=== PATIENT | female | born 1970 | race African-American/Black ===

== ENCOUNTER 2016-04-15 17:33 | Emergency (ER) | payer OTHER ==
[~2016-04-15] VITALS: Ht 172.7 cm; Wt 106.6 kg
[~2016-04-15 17:33] MED LIST: ALBUTEROL SULF8.5 GM INH; ALPRAZOLAM0.25 MG ORAL; AZITHROMYCIN250 MG ORAL; CEPHALEXIN500 MG ORAL; CLOTRIMAZOLE AF30 GM TOPIC; CORTISPORIN EAR10 ML OTIC; DEBROX15 M1 OT; DIPHENHYDRAMINE25 M1 ORAL; FLUCONAZOLE100 MG ORAL; IBUPROFEN600 MG ORAL; IBUPROFEN600 MG PO; KENALOG 0.025%15 GM APPLIC; METROGEL-VAGINA70 G1 VAGIN; NKM; NORCO 5-325 TA1 EACH PO; TRIAMTERENE-HC1 EAC7 PO; ZOFRAN ODT4 MG ORAL
[2016-04-15 17:49] VITALS: BP 128/79
[2016-04-15] MEDS ORDERED: AMOXICILLIN500 MG ORAL (18:01)
[2016-04-15] MEDS ORDERED: PROMETHAZINE-D118 ML ORAL (18:01)
[2016-04-15] MEDS ORDERED: DIFLUCAN150 MG PO (18:06)
[2016-04-15 18:11] VITALS: BP 128/79
--- NOTE | 2016-04-15 18:13 | Emergency Room Report ---
History of Present Illness General Chief Complaint: General Complaint Source: Patient Present Illness HPI The patient is a 45-year-old female presenting with one week of cough, subjective fevers, and congestion. The patient denies any medical history denies any recent travel or sick contacts. The patient denies knee pain and also denies chills, night sweats, hemoptysis, rash, DORADO, neck pain/stiffness, abd pain, CP, SOB Allergies: Coded Allergies: No Known Allergies (Unverified , 05/01/12) Patient History Past Medical History: see triage record Pertinent Family History: none Last Menstrual Period: apr 01, 2016 Now: No Reviewed Nursing Documentation: PMH: Agreed, PSxH: Agreed Nursing Documentation-PMH Past Medical History: No Stated History Hx Hypertension: Yes Review of Systems All Other Systems: negative except mentioned in HPI Physical Exam Vital Signs Date Time Temp Pulse Resp B/P Pulse Ox O2 Delivery O2 Flow Rate FiO2 04/15/16 17:40 97.7 83 16 128/79 100 Room Air Sp02 EP Interpretation: reviewed, normal General Appearance: no apparent distress, alert, GCS 15, non-toxic Head: normocephalic, atraumatic Eyes: bilateral eye PERRL, bilateral eye normal inspection ENT: hearing grossly normal, no angioedema, normal voice, nasal congestion, pharyngeal erythema, tonsillar exudate Neck: full range of motion, supple/symm/no masses Respiratory: chest non-tender, lungs clear, normal breath sounds, no respiratory distress, no accessory muscle use, no wheezing, speaking full sentences Cardiovascular #1: regular rate, rhythm, no edema Gastrointestinal: normal bowel sounds, non tender, soft, non-distended, no guarding, no rebound Musculoskeletal: back normal, gait/station normal, normal range of motion, non- tender Neurologic: alert, oriented x3, responsive, motor strength/tone normal, sensory intact, speech normal Psychiatric: judgement/insight normal, memory normal, mood/affect normal, no suicidal/homicidal ideation Skin: normal color, no rash, warm/dry, well hydrated Lymphatic: no adenopathy Medical Decision Making PA Attestation Dr. Suazo is my supervising physician. Patient management was discussed with my supervising physician Diagnostic Impression: Primary Impression: Pharyngitis, acute ER Course The patient is a 45-year-old female presenting with one week of cough, subjective fevers, and congestion. Differential diagnosis include but not limited to pharyngitis, sinusitis, AOM, bronchitis, PNA PE: vitals WNL. afebrile. NAD HEENT: Bilateral tonsillar erythema. There is right sided tonsillar exudate. Uvula midline. Lungs CTA bilat. No cervical lymphadenopathy The pt will be NC'ed home with prescription for amoxicillin and cough medication. ER precautions given. The pt states she often gets vaginal candidiasis after taking abx and is asking for prescription for diflucan. Last Vital Signs Date Time Temp Pulse Resp B/P Pulse Ox O2 Delivery O2 Flow Rate FiO2 04/15/16 17:49 97.7 16 128/79 100 Room Air 04/15/16 17:40 83 Status: improved Disposition: HOME, SELF-CARE Condition: Improved Scripts Fluconazole (DIFLUCAN) 150 Mg Tablet 150 MG PO DAILY, #1 TAB Prov: STELLA MCCULLOUGH.A. 04/15/16 D-Methorphan Hb/Prometh Hcl* (PROMETHAZINE-DM SYRUP*) 118 Ml Syrup 5 ML ORAL Q6H Y for For Cough, #118 ML 0 Refills Prov: STELLA MCCULLOUGH.A. 04/15/16 Amoxicillin* (AMOXIL*) 500 Mg Capsule 500 MG ORAL Q12HR, #20 CAP Prov: STELLA MCCULLOUGH P.A. 04/15/16 Patient Instructions: Pharyngitis, [id number] Additional Instructions: I discussed my findings with the patient. All questions and concerns have been answered. Treatment and medication compliance have been addressed. I advised the patient that they need to follow up with PMD in 3-5 days. Return to ED if pain remains or worsens, cough worsens or remains, you notice blood in your sputum, you notice wheezing, you experience a fever, or if needed for any reason. Patient verbalized understanding of discharge instructions. STELLA MCCULLOUGH Apr 15, 2016 18:13
== END 2016-04-15 18:12 | disposition home or self-care (01) ==
LOC: EMR 17:55
DX: J02.9 Acute pharyngitis, unspecified (principal); I10 Essential (primary) hypertension
CPT/HCPCS: 99284

== ENCOUNTER 2016-04-19 17:06 | Inpatient (IN) | payer OTHER ==
[~2016-04-19] VITALS: Ht 172.7 cm; Wt 105.7 kg
[~2016-04-19 17:06] MED LIST changes: +AMOXICILLIN500 MG ORAL; +DIFLUCAN150 MG PO; +PROMETHAZINE-D118 ML ORAL
[2016-04-19 17:30] VITALS: BP 128/79
--- NOTE | 2016-04-19 17:53 | Emergency Room Report ---
History of Present Illness General Chief Complaint: Dyspnea/Respdistress Source: Patient Present Illness HPI Patient presents with complaints of shortness of breath sensation she reports that for the past 5 days she has had a similar sensation but she feels that she has to take a deep breath no to get a full air Denies any fevers or chills Denies any back or flank pain denies any chest pain patient was previously diagnosed with pharyngitis however states that she does not have any sore throat symptoms Denies any abdominal pain Denies any recent travel denies any calf pain or swelling denies any pleurisy Allergies: Coded Allergies: No Known Allergies (Unverified , 05/01/12) Patient History Past Medical History: see triage record Pertinent Family History: none Last Menstrual Period: 03/19/16 Now: No Reviewed Nursing Documentation: PMH: Agreed, PSxH: Agreed Nursing Documentation-PMH Past Medical History: No Stated History Hx Hypertension: Yes Review of Systems All Other Systems: negative except mentioned in HPI Physical Exam Vital Signs Date Time Temp Pulse Resp B/P Pulse Ox O2 Delivery O2 Flow Rate FiO2 04/19/16 17:11 98.2 89 20 128/79 04/19/16 17:30 100 Room Air Sp02 EP Interpretation: reviewed, normal General Appearance: well appearing, no apparent distress Head: normocephalic, atraumatic Eyes: bilateral eye EOMI, bilateral eye PERRL ENT: hearing grossly normal, normal pharynx, TMs + canals normal, uvula midline Neck: full range of motion, supple, no meningismus, no bony tend Respiratory: lungs clear, normal breath sounds, no rhonchi, no respiratory distress, no retraction, no accessory muscle use Cardiovascular #1: normal peripheral pulses, regular rate, rhythm, no edema, no gallop, no JVD, no murmur Gastrointestinal: normal bowel sounds, non tender, soft, no mass, no organomegaly, non-distended, no guarding, no hernia, no pulsatile mass, no rebound Genitourinary: no CVA tenderness Musculoskeletal: normal inspection Neurologic: oriented x3, responsive, waste picker III-XII nml as tested, motor strength/ tone normal, sensory intact Psychiatric: mood/affect normal Skin: normal color, no rash, warm/dry, palpation normal Lymphatic: normal inspection, no adenopathy Medical Decision Making Diagnostic Impression: Primary Impression: Symptomatic anemia Additional Impression: Dyspnea ER Course Patient is a fairly complex patient with multiple differential to consideration including but not limited to cardiac cardiopulmonary and vascular emergencies Patient's blood work reveals a hemoglobin of 6.4 Patient does not recall being told she was anemic previously she has never had a blood transfusion before This does provide some input regarding the patient's dyspnea Patient is sent for blood transfusion and admitted for further care The source of anemia also needs to be investigated further patient does have heavier menstrual cycles at times but is currently not hemorrhaging Labs Test 04/19/16 17:15 04/19/16 17:40 04/20/16 07:15 04/20/16 09:55 Urine Color Pale yellow Urine Appearance Clear Urine pH 5 (4.5-8.0) Urine Specific [place] 1.015 (1.005-1.035) Urine Protein Negative (NEGATIVE) Urine Glucose (UA) Negative (NEGATIVE) Urine Ketones Negative (NEGATIVE) Urine Occult Blood Negative (NEGATIVE) Urine Nitrite Negative (NEGATIVE) Urine Bilirubin Negative (NEGATIVE) Urine Urobilinogen Normal MG/DL (0.0-1.0) Urine Leukocyte Esterase Negative (NEGATIVE) Urine HCG, Qualitative Negative Urine Opiates Screen Negative (NEGATIVE) Urine Barbiturates Screen Negative (NEGATIVE) Phencyclidine (PCP) Screen Negative (NEGATIVE) Urine Amphetamines Screen Negative (NEGATIVE) Urine Benzodiazepines Screen Positive (NEGATIVE) Urine Cocaine Screen Negative (NEGATIVE) Urine Marijuana (THC) Screen Negative (NEGATIVE) White Blood Count 4.8 K/UL (4.8-10.8) 3.5 K/UL (4.8-10.8) Red Blood Count 4.33 M/UL (4.20-5.40) 4.32 M/UL (4.20-5.40) Hemoglobin 6.4 G/DL (12.0-16.0) 7.3 G/DL (12.0-16.0) Hematocrit 22.8 % (37.0-47.0) 24.5 % (37.0-47.0) Mean Corpuscular Volume 53 FL (80-99) 57 FL (80-99) Mean Corpuscular Hemoglobin 14.8 PG (27.0-31.0) 16.9 PG (27.0-31.0) Mean Corpuscular Hemoglobin Concent 28.1 G/DL (32.0-36.0) 29.8 G/DL (32.0-36.0) Red Cell Distribution Width 16.4 % (11.6-14.8) 24.5 % (11.6-14.8) Platelet Count 323 K/UL (150-450) 278 K/UL (150-450) Mean Platelet Volume 7.9 FL (6.5-10.1) 7.9 FL (6.5-10.1) Neutrophils (%) (Auto) % (45.0-75.0) % (45.0-75.0) Lymphocytes (%) (Auto) % (20.0-45.0) % (20.0-45.0) Monocytes (%) (Auto) % (1.0-10.0) % (1.0-10.0) Eosinophils (%) (Auto) % (0.0-3.0) % (0.0-3.0) Basophils (%) (Auto) % (0.0-2.0) % (0.0-2.0) Differential Total Cells Counted 100 100 Neutrophils % (Manual) 62 % (45-75) 66 % (45-75) Lymphocytes % (Manual) 32 % (20-45) 24 % (20-45) Monocytes % (Manual) 4 % (1-10) 8 % (1-10) Eosinophils % (Manual) 1 % (0-3) 2 % (0-3) Basophils % (Manual) 1 % (0-2) 0 % (0-2) Band Neutrophils 0 % (0-8) 0 % (0-8) Platelet Estimate Adequate Adequate Platelet Morphology Normal Normal Hypochromasia 3+ 3+ Anisocytosis 3+ 3+ Microcytosis 2+ 2+ Target Cells 1+ Ovalocytes 1+ D-Dimer 981 ng/mL (<500) Sodium Level 139 mEQ/L (135-145) 141 mEQ/L (135-145) Potassium Level 4.1 mEQ/L (3.4-4.9) 4.2 mEQ/L (3.4-4.9) Chloride Level 102 mEQ/L (98-107) 105 mEQ/L (98-107) Carbon Dioxide Level 19 mEQ/L (20-30) 22 mEQ/L (20-30) Anion Gap 18 (5-15) 14 (5-15) Blood Urea Nitrogen 14 mg/dL (7-23) 9 mg/dL (7-23) Creatinine 1.0 mg/dL (0.5-0.9) 0.8 mg/dL (0.5-0.9) Estimat Glomerular Filtration Rate > 60 mL/min (>60) > 60 mL/min (>60) Glucose Level 82 mg/dL (74-106) 88 mg/dL (74-106) Calcium Level 8.9 mg/dL (8.6-10.2) 8.5 mg/dL (8.6-10.2) Total Bilirubin 0.2 mg/dL (0.0-1.2) 0.5 mg/dL (0.0-1.2) Aspartate Amino Transf (AST/SGOT) 20 U/L (5-40) 16 U/L (5-40) Alanine Aminotransferase (ALT/SGPT) 9 U/L (3-33) 7 U/L (3-33) Alkaline Phosphatase 66 U/L (35-104) 61 U/L (35-104) Total Creatine Kinase 124 U/L (26-140) Creatine Kinase MB < 1.5 ng/mL (< 3.8) Creatine Kinase MB Relative Index Troponin I < 0.30 ng/mL (<=0.30) Pro-B-Type Natriuretic Peptide 17 pg/mL (0-125) Total Protein 7.9 g/dL (6.6-8.7) 6.7 g/dL (6.6-8.7) Albumin 4.0 g/dL (3.5-5.2) 3.5 g/dL (3.5-5.2) Globulin 3.9 g/dL 3.2 g/dL Albumin/Globulin Ratio 1.0 (1.0-2.7) 1.0 (1.0-2.7) Erythrocyte Sedimentation Rate 40 MM/HR (0-20) Reticulocyte Count 0.7 % (0.0-2.0) Prothrombin Time 11.1 SEC (9.30-11.50) Prothromb Time International Ratio 1.1 (0.9-1.1) Activated Partial Thromboplast Time 22 SEC (23-33) Iron Level 81 ug/dL (37-145) Total Iron Binding Capacity 397 ug/dL (250-400) Percent Iron Saturation 20 % (15-50) Unsaturated Iron Binding 316 ug/dL (112-346) Lactate Dehydrogenase 133 U/L (135-230) Carcinoembryonic Antigen 1.7 ng/mL Vitamin B12 Level 967 pg/mL (211-946) Thyroid Stimulating Hormone (TSH) 3.000 uIU/mL (0.300-4.500) Stool Occult Blood Negative (NEGATIVE) Rhythm Strip Diag. Results EP Interpretation: yes Rate: 78 Rhythm: NSR, no PVC's, no ectopy Chest X-Ray Diagnostic Results EP Interpretation: Yes Findings: no consolidation, no effusion, no pneumothorax, other - borderline cardiomegaly Number of Views: 1 Last Vital Signs Date Time Temp Pulse Resp B/P Pulse Ox O2 Delivery O2 Flow Rate FiO2 04/19/16 17:30 98.2 89 20 128/79 100 Room Air Status: improved Disposition: ADMITTED INPATIENT Condition: Serious NADJA GIVENS D.O. Apr 19, 2016 17:53
[2016-04-19 18:05] LABS: APPEARANCE,URINE CLEAR; KETONES,URINE NEGATIVE (NEGATIVE); LEUKOCYTE ESTERASE ,URINE NEGATIVE (NEGATIVE); NITRITE,URINE NEGATIVE (NEGATIVE); PH,URINE 5 (4.5-8.0); PROTEIN,URINE NEGATIVE (NEGATIVE); UROBILINOGEN,URINE NORMAL MG/DL (0.0-1.0)
[2016-04-19 18:22] LABS: MEAN CORPUSCULAR HEMOGLOBIN 14.8 PG (27.0-31.0); MEAN CORPUSCULAR HGB CONC 28.1 G/DL (32.0-36.0); MEAN CORPUSCULAR VOLUME 53 FL (80-99); MEAN PLATELET VOLUME 7.9 FL (6.5-10.1); PLATELET COUNT 323 K/UL (150-450); RED BLOOD COUNT 4.33 M/UL (4.20-5.40); RED CELL DISTRIBUTION WIDTH 16.4 % (11.6-14.8); WHITE BLOOD COUNT 4.8 K/UL (4.8-10.8)
[2016-04-19 18:30] VITALS: BP 122/80
[2016-04-19 18:32] LABS: TROPONIN I < 0.30 ng/mL (<=0.30)
[2016-04-19 18:35] LABS: ALANINE AMINOTRANSFERASE 9 U/L (3-33); ANION GAP 18 (5-15); ASPARTATE AMINO TRANSFERASE 20 U/L (5-40); CALCIUM 8.9 mg/dL (8.6-10.2); CARBON DIOXIDE 19 mEQ/L (20-30); CHLORIDE 102 mEQ/L (98-107); GLOMERULAR FILTRATION RATE > 60 mL/min (>60); HEMOLYSIS 9; POTASSIUM 4.1 mEQ/L (3.4-4.9); SODIUM 139 mEQ/L (135-145); TOTAL PROTEIN 7.9 g/dL (6.6-8.7)
[2016-04-19 18:46] LABS: CKMB < 1.5 ng/mL (< 3.8)
[2016-04-19 19:30] VITALS: BP 131/79
[2016-04-19 20:30] VITALS: BP 129/88
[2016-04-19 20:37] LABS: BASOPHILS % (MANUAL) 1 % (0-2); EOSINOPHILS % (MANUAL) 1 % (0-3); LYMPHOCYTES % (MANUAL) 32 % (20-45); NEUTROPHILS % (MANUAL) 62 % (45-75); TOTAL CELLS COUNTED 100
[2016-04-19 20:38] LABS: ANISOCYTOSIS 3+; HYPOCHROMASIA 3+
[2016-04-19 20:39] LABS: BAND NEUTROPHILS % (MANUAL) 0 % (0-8); MICROCYTES 2+; OVALOCYTES 1+; PLATELET ESTIMATE ADEQUATE; PLATELET MORPHOLOGY NORMAL; TARGET CELLS 1+
[2016-04-19] MEDS ORDERED: Miralax 17gm pkt ORAL PRN (21:45)
[2016-04-19] MEDS ORDERED: Morphine Sulfate 2mg/ml Inj IVP PRN (21:45)
[2016-04-19] MEDS ORDERED: LORazepam Inj 2mg/ml 1ml IV PRN (21:45)
[2016-04-19] MEDS ORDERED: Mylanta II UD 30ml ORAL PRN (21:45)
[2016-04-19] MEDS ORDERED: Zolpidem 5mg tab ORAL PRN (21:45)
[2016-04-19 21:53] VITALS: BP 144/69
[2016-04-19 22:04] VITALS: BP 150/93
[2016-04-19] MEDS: ALPRAZolam 0.5mg tab ORAL PRN (23:30)
[2016-04-20] VITALS: BP 142/78
[2016-04-20 04:00] VITALS: BP 138/88
[2016-04-20 07:34] LABS: MEAN CORPUSCULAR HEMOGLOBIN 16.9 PG (27.0-31.0); MEAN CORPUSCULAR HGB CONC 29.8 G/DL (32.0-36.0); MEAN CORPUSCULAR VOLUME 57 FL (80-99); MEAN PLATELET VOLUME 7.9 FL (6.5-10.1); PLATELET COUNT 278 K/UL (150-450); RED BLOOD COUNT 4.32 M/UL (4.20-5.40); RED CELL DISTRIBUTION WIDTH 24.5 % (11.6-14.8); WHITE BLOOD COUNT 3.5 K/UL (4.8-10.8)
[2016-04-20 07:40] LABS: INR 1.1 (0.9-1.1); PROTHROMBIN TIME 11.1 SEC (9.30-11.50)
[2016-04-20 07:49] LABS: ALANINE AMINOTRANSFERASE 7 U/L (3-33); ANION GAP 14 (5-15); ASPARTATE AMINO TRANSFERASE 16 U/L (5-40); CALCIUM 8.5 mg/dL (8.6-10.2); CARBON DIOXIDE 22 mEQ/L (20-30); CHLORIDE 105 mEQ/L (98-107); CREATININE 0.8 mg/dL (0.5-0.9); GLOMERULAR FILTRATION RATE > 60 mL/min (>60); LACTATE DEHYDROGENASE 133 U/L (135-230); POTASSIUM 4.2 mEQ/L (3.4-4.9); SODIUM 141 mEQ/L (135-145); TOTAL PROTEIN 6.7 g/dL (6.6-8.7)
[2016-04-20 08:11] VITALS: BP 120/69
[2016-04-20 08:33] LABS: HEMOLYSIS 2; IRON 81 ug/dL (37-145); TOTAL IRON BINDING CAPACITY 397 ug/dL (250-400)
[2016-04-20 09:05] LABS: ERYTHROCYTE SEDIMENTATION RATE 40 MM/HR (0-20)
--- NOTE | 2016-04-20 11:15 | Diagnostic Imaging Report ---
Indication: SOB Technique: One view of the chest Comparison: 12/02/2013 Findings: Lungs and pleural spaces are clear. Heart size is upper limits normal. Findings are unchanged Impression: No acute process
[2016-04-20 12:01] VITALS: BP 145/76
[2016-04-20 12:18] LABS: BAND NEUTROPHILS % (MANUAL) 0 % (0-8); BASOPHILS % (MANUAL) 0 % (0-2); EOSINOPHILS % (MANUAL) 2 % (0-3); LYMPHOCYTES % (MANUAL) 24 % (20-45); NEUTROPHILS % (MANUAL) 66 % (45-75); PLATELET ESTIMATE ADEQUATE; TOTAL CELLS COUNTED 100
[2016-04-20 12:19] LABS: ANISOCYTOSIS 3+; PLATELET MORPHOLOGY NORMAL
[2016-04-20 12:20] LABS: HYPOCHROMASIA 3+
[2016-04-20 12:21] LABS: MICROCYTES 2+
[2016-04-20 12:48] LABS: PATH BLOOD SMEAR/OMC SENT TO PATHOLOGIST
[2016-04-20 13:01] LABS: RETICULOCYTE COUNT 0.7 % (0.0-2.0)
[2016-04-20 16:00] VITALS: BP 118/77
--- NOTE | 2016-04-20 16:09 | History and Physical ---
History of Present Illness General Date patient seen: Apr 20, 2016 Reason for Hospitalization: Dyspnea/Respdistress Present Illness HPI 45 year old female presents with complaints of shortness of breath for the past 5 days. She was found to be severely anemic and admitted for further evaluation. Allergies: Coded Allergies: No Known Allergies (Unverified , 05/01/12) Medication History Scheduled Amoxicillin* (Amoxil*), 500 MG ORAL Q12HR Fluconazole (Diflucan), 150 MG PO DAILY No Known Medications* (NKM - No Known Medications*), 0 ., (Reported) Scheduled PRN D-Methorphan Hb/Prometh Hcl* (Promethazine-Dm Syrup*), 5 ML ORAL Q6H PRN for For Cough Discontinued Medications Albuterol Sulfate* (Albuterol Sulfate Mdi*), 2 PUFF INH Q4H PRN for For Cough Discontinued Reason: Therapy completed Alprazolam* (Xanax*), 0.25 MG ORAL TID PRN for For Anxiety Discontinued Reason: Therapy completed Azithromycin* (Zithromax*), 250 MG ORAL DAILY Discontinued Reason: Therapy completed Carbamide Peroxide (Debrox), 15 ML OT TID PRN for ear wax Discontinued Reason: Therapy completed Cephalexin* (Keflex*), 500 MG ORAL EVERY 12 HOURS Discontinued Reason: Therapy completed Diphenhydramine Hcl* (Diphenhydramine Hcl*), 25 MG ORAL Q6H PRN for Itching Discontinued Reason: Therapy completed Fluconazole (Fluconazole), 100 MG ORAL DAILY Discontinued Reason: Therapy completed Ibuprofen* (Motrin*), 600 MG ORAL Q8H PRN for For Pain Discontinued Reason: Therapy completed Neomycin/Polymyxin B Sulf/Hc* (Cortisporin Ear Solution*), 2 DROP OTIC FOUR TIMES A DAY Discontinued Reason: Therapy completed Ondansetron Odt* (Zofran Odt*), 4 MG ORAL Q6H PRN for Nausea & Vomiting Discontinued Reason: Therapy completed Triamcinolone Acet (Triamcinolone Acetonide), 15 GM APPLIC BID Discontinued Reason: Therapy completed Patient History Healthcare decision maker pt alert and oriented Resuscitation status Advanced Directive on File Review of Systems All Other Systems: negative except mentioned in HPI Physical Exam General Appearance: WD/WN Lines, tubes and drains: peripheral HEENT: normocephalic, atraumatic Neck: non-tender, normal alignment Respiratory/Chest: lungs clear, normal breath sounds Abdomen: normal bowel sounds, non tender Genitourinary/Rectal: normal genital exam Last 24 Hour Vital Signs Date Time Temp Pulse Resp B/P Pulse Ox O2 Delivery O2 Flow Rate FiO2 04/20/16 12:01 97.2 76 20 145/76 100 Room Air 04/20/16 08:11 97.9 76 21 120/69 99 Room Air 04/20/16 04:00 97.0 88 18 138/88 100 Room Air 04/20/16 00:00 98.1 85 18 142/78 98 Room Air 04/19/16 22:04 98.4 83 20 150/93 100 Room Air 04/19/16 21:53 87 20 144/69 100 Room Air 04/19/16 21:50 98.0 87 18 04/19/16 21:18 98.2 79 18 129/88 100 Room Air 04/19/16 20:30 79 18 129/88 100 Room Air 04/19/16 19:30 84 20 131/79 100 Room Air 04/19/16 18:30 81 18 122/80 99 Room Air 04/19/16 17:30 98.2 89 20 128/79 100 Room Air 04/19/16 17:30 89 20 04/19/16 17:11 98.2 89 20 128/79 Intake and Output 04/19/16 04/20/16 19:00 07:00 Intake Total 120 ml Balance 120 ml Intake Oral 120 ml # Voids 1 Laboratory Tests Test 04/19/16 17:15 04/19/16 17:40 04/20/16 07:15 04/20/16 09:55 Urine Color Pale yellow Urine Appearance Clear Urine pH 5 (4.5-8.0) Urine Specific [place] 1.015 (1.005-1.035) Urine Protein Negative (NEGATIVE) Urine Glucose (UA) Negative (NEGATIVE) Urine Ketones Negative (NEGATIVE) Urine Occult Blood Negative (NEGATIVE) Urine Nitrite Negative (NEGATIVE) Urine Bilirubin Negative (NEGATIVE) Urine Urobilinogen Normal MG/DL (0.0-1.0) Urine Leukocyte Esterase Negative (NEGATIVE) Urine HCG, Qualitative Negative Urine Opiates Screen Negative (NEGATIVE) Urine Barbiturates Screen Negative (NEGATIVE) Phencyclidine (PCP) Screen Negative (NEGATIVE) Urine Amphetamines Screen Negative (NEGATIVE) Urine Benzodiazepines Screen Positive (NEGATIVE) H Urine Cocaine Screen Negative (NEGATIVE) Urine Marijuana (THC) Screen Negative (NEGATIVE) White Blood Count 4.8 K/UL (4.8-10.8) 3.5 K/UL (4.8-10.8) L Red Blood Count 4.33 M/UL (4.20-5.40) 4.32 M/UL (4.20-5.40) Hemoglobin 6.4 G/DL (12.0-16.0) *L 7.3 G/DL (12.0-16.0) L Hematocrit 22.8 % (37.0-47.0) L 24.5 % (37.0-47.0) L Mean Corpuscular Volume 53 FL (80-99) L 57 FL (80-99) L Mean Corpuscular Hemoglobin 14.8 PG (27.0-31.0) L 16.9 PG (27.0-31.0) L Mean Corpuscular Hemoglobin Concent 28.1 G/DL (32.0-36.0) L 29.8 G/DL (32.0-36.0) L Red Cell Distribution Width 16.4 % (11.6-14.8) H 24.5 % (11.6-14.8) H Platelet Count 323 K/UL (150-450) 278 K/UL (150-450) Mean Platelet Volume 7.9 FL (6.5-10.1) 7.9 FL (6.5-10.1) Neutrophils (%) (Auto) % (45.0-75.0) % (45.0-75.0) Lymphocytes (%) (Auto) % (20.0-45.0) % (20.0-45.0) Monocytes (%) (Auto) % (1.0-10.0) % (1.0-10.0) Eosinophils (%) (Auto) % (0.0-3.0) % (0.0-3.0) Basophils (%) (Auto) % (0.0-2.0) % (0.0-2.0) Differential Total Cells Counted 100 100 Neutrophils % (Manual) 62 % (45-75) 66 % (45-75) Lymphocytes % (Manual) 32 % (20-45) 24 % (20-45) Monocytes % (Manual) 4 % (1-10) 8 % (1-10) Eosinophils % (Manual) 1 % (0-3) 2 % (0-3) Basophils % (Manual) 1 % (0-2) 0 % (0-2) Band Neutrophils 0 % (0-8) 0 % (0-8) Platelet Estimate Adequate Adequate Platelet Morphology Normal Normal Hypochromasia 3+ 3+ Anisocytosis 3+ 3+ Microcytosis 2+ 2+ Target Cells 1+ Ovalocytes 1+ D-Dimer 981 ng/mL (<500) H Sodium Level 139 mEQ/L (135-145) 141 mEQ/L (135-145) Potassium Level 4.1 mEQ/L (3.4-4.9) 4.2 mEQ/L (3.4-4.9) Chloride Level 102 mEQ/L (98-107) 105 mEQ/L (98-107) Carbon Dioxide Level 19 mEQ/L (20-30) L 22 mEQ/L (20-30) Anion Gap 18 (5-15) H 14 (5-15) Blood Urea Nitrogen 14 mg/dL (7-23) 9 mg/dL (7-23) Creatinine 1.0 mg/dL (0.5-0.9) H 0.8 mg/dL (0.5-0.9) Estimat Glomerular Filtration Rate > 60 mL/min (>60) > 60 mL/min (>60) Glucose Level 82 mg/dL (74-106) 88 mg/dL (74-106) Calcium Level 8.9 mg/dL (8.6-10.2) 8.5 mg/dL (8.6-10.2) L Total Bilirubin 0.2 mg/dL (0.0-1.2) 0.5 mg/dL (0.0-1.2) Aspartate Amino Transf (AST/SGOT) 20 U/L (5-40) 16 U/L (5-40) Alanine Aminotransferase (ALT/SGPT) 9 U/L (3-33) 7 U/L (3-33) Alkaline Phosphatase 66 U/L (35-104) 61 U/L (35-104) Total Creatine Kinase 124 U/L (26-140) Creatine Kinase MB < 1.5 ng/mL (< 3.8) Creatine Kinase MB Relative Index Troponin I < 0.30 ng/mL (<=0.30) Pro-B-Type Natriuretic Peptide 17 pg/mL (0-125) Total Protein 7.9 g/dL (6.6-8.7) 6.7 g/dL (6.6-8.7) Albumin 4.0 g/dL (3.5-5.2) 3.5 g/dL (3.5-5.2) Globulin 3.9 g/dL 3.2 g/dL Albumin/Globulin Ratio 1.0 (1.0-2.7) 1.0 (1.0-2.7) Erythrocyte Sedimentation Rate 40 MM/HR (0-20) H Reticulocyte Count 0.7 % (0.0-2.0) Prothrombin Time 11.1 SEC (9.30-11.50) Prothromb Time International Ratio 1.1 (0.9-1.1) Activated Partial Thromboplast Time 22 SEC (23-33) L Iron Level 81 ug/dL (37-145) Total Iron Binding Capacity 397 ug/dL (250-400) Percent Iron Saturation 20 % (15-50) Unsaturated Iron Binding 316 ug/dL (112-346) Lactate Dehydrogenase 133 U/L (135-230) L Carcinoembryonic Antigen 1.7 ng/mL Vitamin B12 Level 967 pg/mL (211-946) H Folate Pending Thyroid Stimulating Hormone (TSH) 3.000 uIU/mL (0.300-4.500) Stool Occult Blood Negative (NEGATIVE) Height (Feet): 5 Height (Inches): 8.00 Weight (Pounds): 233 Medications Current Medications Medications (Trade) Dose Ordered Sig/Sahra Route PRN Reason Start Time Stop Time Status Last Admin Dose Admin Acetaminophen (Tylenol) 650 mg Q4H PRN ORAL fever 04/19/16 21:45 05/19/16 21:44 Al Hydroxide/Mg Hydroxide (Mylanta II) 30 ml Q6H PRN ORAL dyspepsia 04/19/16 21:45 05/19/16 21:44 Alprazolam (Xanax) 1 mg EVERY 4 HOURS PRN ORAL For Anxiety 04/19/16 23:00 04/26/16 22:59 04/19/16 23:30 Dextrose (Dextrose 50%) STAT PRN IV Hypoglycemia 04/19/16 21:45 05/19/16 21:44 Lorazepam (Ativan 2mg/ml 1ml) 0.5 mg Q4H PRN IV For Anxiety 04/19/16 21:45 04/26/16 21:44 Morphine Sulfate (Morphine Sulfate) 1 mg EVERY 4 HOURS PRN IVP For Pain 04/19/16 21:45 04/26/16 21:44 Ondansetron HCl (Zofran) 4 mg Q6H PRN IVP Nausea & Vomiting 04/19/16 21:45 05/19/16 21:44 Polyethylene Glycol (Miralax) 17 gm HSPRN PRN ORAL Constipation 04/19/16 21:45 05/19/16 21:44 Zolpidem Tartrate (Ambien) 5 mg HSPRN PRN ORAL Insomnia 04/19/16 21:45 05/19/16 21:44 Assessment/Plan Problem List: (1) Symptomatic anemia ICD Codes: D64.9 - Anemia, unspecified SNOMED: 165863187 (2) Anxiety ICD Codes: F41.9 - Anxiety disorder, unspecified; F48.9 - Nonpsychotic mental disorder, unspecified SNOMED: 75654834 Assessment/Plan prbc iron studies check h/h ELENO ELIZALDE Apr 20, 2016 16:09
--- NOTE | 2016-04-20 16:24 | Diagnostic Imaging Report ---
Indication: Pelvic pain, history of uterine fibroids Technique: Transabdominal and transvaginal images Comparison: None Findings: Uterus measures 9.6 cm length by 6.3 cm AP. Within the myometrium are multiple fibroids, some calcified, measuring up to 3.2 cm long axis dimension. There are small cervical nabothian cysts. The left ovary measures 3.2 cm length. Right ovary measures 3.5 cm length. No adnexal mass is demonstrated. There is a small to moderate amount of free fluid within the pelvic cul-de-sac. Impression: Multiple uterine fibroids, some calcified Negative for adnexal mass Small to moderate free pelvic cul-de-sac fluid. Presumably physiologic
[2016-04-20] MEDS: ALPRAZolam 0.5mg tab ORAL PRN (19:42)
[2016-04-20 20:00] VITALS: BP 121/74
[2016-04-21] VITALS: BP 111/66
[2016-04-21] MEDS: ALPRAZolam 0.5mg tab ORAL PRN (01:32)
[2016-04-21 04:00] VITALS: BP 115/76
[2016-04-21 08:00] VITALS: BP 121/65
[2016-04-21 10:23] LABS: BASOPHILS % (AUTO) 1.3 % (0.0-2.0); EOSINOPHILS % (AUTO) 1.5 % (0.0-3.0); LYMPHOCYTES % (AUTO) 20.8 % (20.0-45.0); MEAN CORPUSCULAR HEMOGLOBIN 17.8 PG (27.0-31.0); MEAN CORPUSCULAR HGB CONC 29.7 G/DL (32.0-36.0); MEAN CORPUSCULAR VOLUME 60 FL (80-99); MEAN PLATELET VOLUME 7.6 FL (6.5-10.1); MONOCYTES % (AUTO) 10.7 % (1.0-10.0); NEUTROPHILS % (AUTO) 65.8 % (45.0-75.0); PLATELET COUNT 280 K/UL (150-450); RED BLOOD COUNT 5.02 M/UL (4.20-5.40); RED CELL DISTRIBUTION WIDTH 27.3 % (11.6-14.8); WHITE BLOOD COUNT 4.1 K/UL (4.8-10.8)
[2016-04-21] MEDS ORDERED: NS 275ml ONE (11:59)
[2016-04-21] MEDS ORDERED: Tubing Blood Filter IV ONE (11:59)
[2016-04-21 12:00] VITALS: BP 134/58
--- NOTE | 2016-04-21 14:48 | Pulmonology Progress Note ---
Assessment/Plan Problems: (1) Symptomatic anemia (2) Anxiety Assessment/Plan better got 3 untis of prbc need outpatient anemia w/u. pt aware Subjective ROS Limited/Unobtainable: No Interval Events: feeling better Allergies: Coded Allergies: No Known Allergies (Unverified , 05/01/12) Objective Last 24 Hour Vital Signs Date Time Temp Pulse Resp B/P Pulse Ox O2 Delivery O2 Flow Rate FiO2 04/21/16 12:00 97.7 72 20 134/58 100 Room Air 04/21/16 08:00 98.6 85 20 121/65 100 Room Air 04/21/16 04:00 98.1 70 20 115/76 99 Room Air 04/21/16 00:00 97.7 75 18 111/66 99 Room Air 04/20/16 20:00 98.2 79 18 121/74 99 Room Air 04/20/16 16:00 98.2 76 18 118/77 100 Room Air Intake and Output 04/20/16 04/21/16 19:00 07:00 Intake Total 440 ml 790 ml Balance 440 ml 790 ml Intake Oral 440 ml 540 ml Blood Product 250 ml # Voids 4 General Appearance: WD/WN HEENT: normocephalic, atraumatic Respiratory/Chest: chest wall non-tender, lungs clear Breasts: no masses Cardiovascular: normal peripheral pulses Abdomen: normal bowel sounds Extremities: no cyanosis Skin: no rash 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 Lymphatic: no neck adenopathy, no groin adenopathy Laboratory Tests 04/21/16 09:30: White Blood Count 4.1L, Red Blood Count 5.02, Hemoglobin 8.9L, Hematocrit 30.1L , Mean Corpuscular Volume 60L, Mean Corpuscular Hemoglobin 17.8L, Mean Corpuscular Hemoglobin Concent 29.7L, Red Cell Distribution Width 27.3H, Platelet Count 280, Mean Platelet Volume 7.6, Neutrophils (%) (Auto) 65.8, Lymphocytes (%) (Auto) 20.8, Monocytes (%) (Auto) 10.7H, Eosinophils (%) (Auto) 1.5, Basophils (%) (Auto) 1.3 Current Medications Medications (Trade) Dose Ordered Sig/Sahra Route PRN Reason Start Time Stop Time Status Last Admin Dose Admin Acetaminophen (Tylenol) 650 mg Q4H PRN ORAL fever 04/19/16 21:45 05/19/16 21:44 Al Hydroxide/Mg Hydroxide (Mylanta II) 30 ml Q6H PRN ORAL dyspepsia 04/19/16 21:45 05/19/16 21:44 Alprazolam (Xanax) 1 mg EVERY 4 HOURS PRN ORAL For Anxiety 04/19/16 23:00 04/26/16 22:59 04/21/16 01:32 Dextrose (Dextrose 50%) STAT PRN IV Hypoglycemia 04/19/16 21:45 05/19/16 21:44 Lorazepam (Ativan 2mg/ml 1ml) 0.5 mg Q4H PRN IV For Anxiety 04/19/16 21:45 04/26/16 21:44 Morphine Sulfate (Morphine Sulfate) 1 mg EVERY 4 HOURS PRN IVP For Pain 04/19/16 21:45 04/26/16 21:44 Ondansetron HCl (Zofran) 4 mg Q6H PRN IVP Nausea & Vomiting 04/19/16 21:45 05/19/16 21:44 Polyethylene Glycol (Miralax) 17 gm HSPRN PRN ORAL Constipation 04/19/16 21:45 05/19/16 21:44 Zolpidem Tartrate (Ambien) 5 mg HSPRN PRN ORAL Insomnia 04/19/16 21:45 05/19/16 21:44 ELENO ELIZALDE Apr 21, 2016 14:48
[2016-04-22 09:14] LABS: OTHERS PATHOLOGIST COMMENT
--- NOTE | 2016-04-22 12:14 | Diagnostic Imaging Report ---
APPROVED REPORT CPT Code: 25924 Present Symptoms Comments: Abnormal labs BILATERAL: Imaging reveals a patent deep venous system bilaterally. There is no evidence of thrombus within the femoral, popliteal or tibial segments. The greater saphenous veins are also within normal limits. Doppler indicates normal spontaneous flow within these segments.
--- NOTE | 2016-04-22 15:27 | Discharge Summary ---
Discharge Summary Hospital Course Date of Admission Apr 19, 2016 at 19:27 Date of Discharge Apr 21, 2016 at 12:00 Admitting Diagnosis symptomatic anemia HPI Oib Leonardo is a 45 year old female who was admitted on Apr 19, 2016 at 19: 27 for Symptomatic Anemia Hospital Course [id number] Discharge Discharge Disposition Patient was discharged to Home (01) Discharge Diagnoses: Allie Toro NP Apr 22, 2016 15:27
--- NOTE | 2016-04-22 15:28 | Cardiology Report ---
APPROVED REPORT EKG Measurement Heart [id number] Normal sinus rhythm Normal ECG
--- NOTE | 2016-04-23 01:28 | Discharge Summary 2 SIG ---
DATE OF ADMISSION: 04/19/2016 DATE OF DISCHARGE: 04/21/2016 BRIEF HOSPITAL COURSE: The patient is a 45-year-old female, who presented to ED complaining of shortness of breath for the past five days. On evaluation, she was found to be severely anemic. Hemoglobin was 6.4 and hematocrit of 22. She was admitted to medical floor and was given 3 units of packed RBC transfusion. Pelvic ultrasound showed multiple uterine fibroids. Negative for adnexal mass. Venous duplex was negative for DVT. Stool OB was negative. Blood counts were better. The patient was discharged home. Advised need of outpatient anemia workup. The patient was aware. FINAL DIAGNOSES: 1. Acute symptomatic anemia, status post blood transfusion. 2. Anxiety. 3. Multiple uterine fibroids. Erica Sanchez M.D. I have been assigned to dictate discharge summary on this account and I was not involved in the patient's management. Allie Toro N.P. DR: YESY JOB#: [id number] CC:
== END 2016-04-21 12:00 | disposition home or self-care (01) | DRG 663 ==
LOC: EMR 18:23 → 3E 19:27 → EDBEDREQ 20:21 → 3E 22:00
PROC: 30233N1 Transfusion of Nonautologous Red Blood Cells into Peripheral Vein, Percutaneous Approach (ICD-10-PCS; principal; 2016-04-19)
DX: D64.9 Anemia, unspecified (principal); D25.9 Leiomyoma of uterus, unspecified; F41.9 Anxiety disorder, unspecified
CPT/HCPCS: 36415; 71010; 76856; 80053; 80300; 81003; 81025; 82270; 82378; 82550; 82553; 82607; 82746; 83540; 83550; 83615; 83880; 84443; 84484; 85007; 85025; 85044; 85060; 85379; 85610; 85651; 85730; 86850; 86900; 86901; 86920; 93005; 93970

== ENCOUNTER 2016-05-15 17:19 | Emergency (ER) | payer OTHER ==
[~2016-05-15] VITALS: Ht 175.3 cm; Wt 106.6 kg
[2016-05-15] MEDS ORDERED: Ketorolac 30mg Inj IM ONE (17:45)
--- NOTE | 2016-05-15 17:51 | Emergency Room Report ---
History of Present Illness General Chief Complaint: Pain Source: Patient Present Illness HPI 45-year-old female complaining of left hip pain for 2 days. States pain is in the left hip radiating to the left knee and is now progressing to the left tibia region and left leg swelling. Pain is worse with movement of the left hip and knee. Complains of left leg weakness. Admits she was admitted for 3 days 1 month ago for anemia and received 3 transfusions. Denies any injury or recent trauma or strain admits to being sedentary. States she feels like she pulled a muscle and pain is 10/10 crampy sensation that is 4/10 when she is not bearing weight or sitting on her left side. Patient denies any pressure, paralysis, cyanosis, bruising, loss of sensation, or loss of range of motion. Allergies: Coded Allergies: No Known Allergies (Unverified , 05/01/12) Patient History Past Medical History: see triage record, old chart reviewed Last Menstrual Period: apr 17, 2016 Now: No Immunizations: UTD Reviewed Nursing Documentation: PMH: Agreed, PSxH: Agreed Nursing Documentation-PMH Past Medical History: No Stated History Hx Cardiac Problems: No Hx Hypertension: Yes Hx Cancer: No Hx Gastrointestinal Problems: No Hx Neurological Problems: No Review of Systems All Other Systems: negative except mentioned in HPI Physical Exam Vital Signs Date Time Temp Pulse Resp B/P Pulse Ox O2 Delivery O2 Flow Rate FiO2 05/15/16 17:24 98.4 84 15 143/87 98 Room Air Sp02 EP Interpretation: reviewed, normal General Appearance: no apparent distress, alert, GCS 15, non-toxic, obese Head: normocephalic, atraumatic ENT: hearing grossly normal, normal pharynx, no angioedema, normal voice Neck: full range of motion, supple/symm/no masses Respiratory: chest non-tender, lungs clear, normal breath sounds, speaking full sentences Cardiovascular #1: regular rate, rhythm, no edema Cardiovascular #2: 2+ dorsalis pedis (R), 2+ dorsalis pedis (L) Gastrointestinal: non tender, soft Rectal: deferred Genitourinary: normal inspection, no CVA tenderness Musculoskeletal: back normal, gait/station normal, normal range of motion, calf tenderness - Left calf and popliteal fossa, swelling - 1+ LE edema bilaterally, tender - left sided hip tenderness Neurologic: alert, oriented x3, responsive, motor strength/tone normal, sensory intact, speech normal Psychiatric: judgement/insight normal, memory normal, mood/affect normal, no suicidal/homicidal ideation Skin: normal color, no rash, warm/dry, well hydrated Lymphatic: no adenopathy Medical Decision Making PA Attestation Dr. Gauthier is my supervising physician with whom patient management has been discussed with. Diagnostic Impression: Primary Impression: Left hip pain ER Course Pt. presents to the ED c/o left hip pain Ddx considered but are not limited to fracture, sciatica, muscle strain / spasm , DVT, bakers cyst Vital signs: are WNL, pt. is afebrile H&PE are most consistent with left hip pain ORDERS: XR Pelvic and Left Hip. Left Venous Doppler, UA, Preg ED INTERVENTIONS: Toradol, Morphine DISCHARGE: At this time pt. is stable for d/c to home. could not r/o DVT as patient left AMA due to not wanting to wait for US to be performed and after she had received pain medication.Will provide printed patient care instructions , and any necessary prescriptions. Care plan and follow up instructions have been discussed with the patient prior to discharge. Other X-Ray Diagnostic Results Other X-Ray Diagnostic Results : X-Ray Ordered: Left Hip and Pelvis Date: May 15, 2016 EP Interpretation: Yes Findings: no fractures, no dislocation, no soft tissue swelling, other - Arthritic changes present. No acute process present Number of Views: 3 Last Vital Signs Date Time Temp Pulse Resp B/P Pulse Ox O2 Delivery O2 Flow Rate FiO2 05/15/16 20:07 98.5 81 15 138/81 98 Room Air Status: improved Disposition: AGAINST MEDICAL ADVICE Condition: Stable Scripts Naproxen* (NAPROSYN*) 500 Mg Tablet 500 MG ORAL TWICE A DAY for 10 Days, #20 TAB Prov: SABRY,TAMEEM P.A. 05/15/16 Acetaminophen With Codeine (T#4) (TYLENOL #4 TAB*) Y Tab 1 TAB ORAL Q8H Y for For Pain, #10 TAB 0 Refills Prov: SABRY,TAMEEM P.A. 05/15/16 Methocarbamol* (ROBAXIN-750*) 750 Mg Tablet 750 MG PO TID, #21 TAB 0 Refills Prov: SABRY,TAMEEM P.A. 05/15/16 Referrals: [facility] (PCP) ADOLPH GARDUNO May 15, 2016 17:51
[2016-05-15 18:17] LABS: APPEARANCE,URINE SLIGHTLY CLOUDY; KETONES,URINE NEGATIVE (NEGATIVE); LEUKOCYTE ESTERASE ,URINE NEGATIVE (NEGATIVE); NITRITE,URINE NEGATIVE (NEGATIVE); PH,URINE 5 (4.5-8.0); PROTEIN,URINE NEGATIVE (NEGATIVE); UROBILINOGEN,URINE NORMAL MG/DL (0.0-1.0)
[2016-05-15 18:26] LABS: BACTERIA,URINE FEW /HPF; RBC,URINE 0 /HPF (0 - 2); SQUAMOUS EPITHELIAL CELL,UR FEW /LPF (NONE/OCC)
[2016-05-15] MEDS ORDERED: Morphine Sulfate 4mg/ml Inj IM ONE (18:45)
[2016-05-15 19:21] VITALS: BP 138/81
[2016-05-15] MEDS ORDERED: ROBAXIN-750750 MG PO (19:55)
[2016-05-15] MEDS ORDERED: ACETAMINOPHEN-1 EAC2 ORAL (19:55)
[2016-05-15] MEDS ORDERED: NAPROSYN500 M1 ORAL (19:55)
[2016-05-15 20:07] VITALS: BP 138/81
--- NOTE | 2016-05-16 11:16 | Diagnostic Imaging Report ---
Indication: pain Findings: Single AP view of the pelvis was performed. No acute fracture is identified. Bone mineralization is within normal limits. Bilateral hips and sacroiliac joints appear symmetric.There is no malalignment. Soft tissues are unremarkable.
--- NOTE | 2016-05-16 11:16 | Diagnostic Imaging Report ---
Indications: hip pain Findings: Two views of the left hip were obtained. No acute fracture is demonstrated. Alignment of the hip is within normal limits. Soft tissues are unremarkable. Impression: Negative examination of the hip.
== END 2016-05-15 20:07 | disposition left against medical advice (07) ==
LOC: EMR 17:44
DX: M25.552 Pain in left hip (principal); I10 Essential (primary) hypertension; Z53.21 Procedure and treatment not carried out due to patient leaving prior to being seen by health care provider
CPT/HCPCS: 72170; 73502; 81003; 81025; 96372; 99284; J1885; J2270

== ENCOUNTER 2017-01-06 18:37 | Emergency (ER) | payer OTHER ==
[~2017-01-06] VITALS: Ht 172.7 cm; Wt 115.2 kg
[~2017-01-06 18:37] MED LIST changes: +ACETAMINOPHEN-1 EAC2 ORAL; +NAPROSYN500 M1 ORAL; +ROBAXIN-750750 MG PO
[2017-01-06 19:08] VITALS: BP 127/78
[2017-01-06 19:12] LABS: APPEARANCE,URINE CLEAR; BILIRUBIN, URINE NEGATIVE (NEGATIVE); COLOR,URINE PALE YELLOW; GLUCOSE, URINE (UA) NEGATIVE (NEGATIVE); KETONES,URINE 2+ (NEGATIVE); LEUKOCYTE ESTERASE ,URINE NEGATIVE (NEGATIVE); NITRITE,URINE NEGATIVE (NEGATIVE); PH,URINE 5 (4.5-8.0); PROTEIN,URINE NEGATIVE (NEGATIVE); UROBILINOGEN,URINE NORMAL MG/DL (0.0-1.0)
[2017-01-06] MEDS ORDERED: Fluconazole 100mg tab ORAL ONE (19:45)
[2017-01-06 19:50] VITALS: BP 127/78
--- NOTE | 2017-01-06 20:32 | Emergency Room Report ---
History of Present Illness General Chief Complaint: Female Urogenital Problems Source: Patient, Medical Record Present Illness HPI The patient is a 46 old female presenting for vaginal irritation, white discharge, and vaginal itching for the past day. She states that she has had a vaginal yeast infection in the past and this feels the same for her. She denies any dysuria, hematuria, or increased urinary frequency. She denies any other symptoms including nausea, vomiting, fever, chills, back pain Allergies: Coded Allergies: No Known Allergies (Unverified , 05/01/12) Patient History Past Medical History: see triage record Pertinent Family History: none Last Menstrual Period: menopause Reviewed Nursing Documentation: PMH: Agreed, PSxH: Agreed Nursing Documentation-PMH Hx Cardiac Problems: No Hx Hypertension: Yes Hx Cancer: No Hx Gastrointestinal Problems: No Hx Neurological Problems: No Review of Systems All Other Systems: negative except mentioned in HPI Physical Exam Vital Signs Date Time Temp Pulse Resp B/P (MAP) Pulse Ox O2 Delivery O2 Flow Rate FiO2 01/06/17 18:45 98.4 79 18 127/78 100 Room Air Sp02 EP Interpretation: reviewed, normal General Appearance: no apparent distress, alert, GCS 15, non-toxic Head: normocephalic, atraumatic Eyes: bilateral eye normal inspection, bilateral eye PERRL ENT: hearing grossly normal, normal pharynx, no angioedema, normal voice Neck: full range of motion, supple/symm/no masses Gastrointestinal: normal bowel sounds, non tender, soft, non-distended, no guarding, no rebound Genitourinary: normal inspection, no CVA tenderness Musculoskeletal: back normal, gait/station normal, normal range of motion, non- tender, calf tenderness Neurologic: alert, oriented x3, responsive, motor strength/tone normal, sensory intact, speech normal Psychiatric: judgement/insight normal, memory normal, mood/affect normal, no suicidal/homicidal ideation Skin: normal color, no rash, warm/dry, well hydrated Medical Decision Making PA Attestation Dr. Suazo is my supervising physician. Patient management was discussed with my supervising physician Diagnostic Impression: Primary Impression: Vaginal yeast infection ER Course The patient is a 46 old female presenting for vaginal irritation, white discharge, and vaginal itching for the past day. Differential diagnosis considered but not limited to: UTI, vaginitis, yeast infection, pyelonephritis, among others PE: Vitals WNL. NAD. Abdomen: Normal appearance. Non distended. No ecchymosis. Normal BS. Non TTP. No McBurney point tenderness. No guarding. No CVA tenderness UA: no signs of UTI The patient is treated for yeast infection in the emergency department and will be discharged home. ER precautions are given Laboratory Tests Test 01/06/17 18:47 Urine Color Pale yellow Urine Appearance Clear Urine pH 5 (4.5-8.0) Urine Specific [place] 1.015 (1.005-1.035) Urine Protein Negative (NEGATIVE) Urine Glucose (UA) Negative (NEGATIVE) Urine Ketones 2+ (NEGATIVE) H Urine Occult Blood 1+ (NEGATIVE) H Urine Nitrite Negative (NEGATIVE) Urine Bilirubin Negative (NEGATIVE) Urine Urobilinogen Normal MG/DL (0.0-1.0) Urine Leukocyte Esterase Negative (NEGATIVE) Urine RBC 0-2 /HPF (0 - 2) Urine WBC 0-2 /HPF (0 - 2) Urine Squamous Epithelial Cells Few /LPF (NONE/OCC) Urine Bacteria Occasional /HPF (NONE) Lab Results Impression No signs of UTI Last Vital Signs Date Time Temp Pulse Resp B/P (MAP) Pulse Ox O2 Delivery O2 Flow Rate FiO2 01/06/17 19:50 98.4 71 18 127/78 100 Room Air Status: improved Disposition: HOME, SELF-CARE Condition: Improved Referrals: [facility] (PCP) Patient Instructions: Vaginal Yeast Infection, Adult Additional Instructions: I discussed my findings with the patient. All questions and concerns have been answered. Treatment and medication compliance have been addressed. I advised the patient that they need to follow up with PMD in 3-5 days. Return to ED if symptoms worsen, new symptoms arise, or if needed for any reason. Patient verbalized understanding of discharge instructions. STELLA MCCULLOUGH Jan 06, 2017 20:32
== END 2017-01-06 19:50 | disposition home or self-care (01) ==
LOC: EMR 19:25
DX: B37.3 Candidiasis of vulva and vagina (principal); I10 Essential (primary) hypertension
CPT/HCPCS: 81003; 99283

== ENCOUNTER 2017-07-17 15:25 | Emergency (ER) | payer OTHER ==
[~2017-07-17] VITALS: Ht 172.7 cm; Wt 117.5 kg
[2017-07-17 15:36] VITALS: BP 127/82
--- NOTE | 2017-07-17 16:11 | Emergency Room Report ---
History of Present Illness General Chief Complaint: Female Urogenital Problems Present Illness HPI 46-year-old female presents to the emergency department complaining of white/ creamy vaginal discharge in addition to malodor 4 days. Denies pain. Patient reports history of BV in the past and this has similar presentation. Patient also states after receiving antibiotic she typically gets a yeast infection. Patient denies recent unprotected intercourse she denies swollen tender lymph nodes, joint pain, fevers, chills, abdominal pain or tenderness, hematuria, frequency or urgency. Patient reports some dysuria and speculates that it is due to contact of genital area. Denies CP, Palpitations, LOC, AMS, dizziness, Changes in Vision, Sensation, paresthesias, or a sudden severe headache. Allergies: Coded Allergies: No Known Allergies (Unverified , 05/01/12) Patient History Past Medical History: see triage record Past Surgical History: none Pertinent Family History: none Now: No Reviewed Nursing Documentation: PMH: Agreed; PSxH: Agreed Nursing Documentation-PMH Hx Cardiac Problems: No Hx Hypertension: Yes Hx Cancer: No Hx Gastrointestinal Problems: No Hx Neurological Problems: No Review of Systems All Other Systems: negative except mentioned in HPI Physical Exam Vital Signs Date Time Temp Pulse Resp B/P (MAP) Pulse Ox O2 Delivery O2 Flow Rate FiO2 5/20/18 15:29 82 20 127/82 97 Room Air Sp02 EP Interpretation: reviewed, normal General Appearance: no apparent distress, alert, GCS 15, non-toxic Head: normocephalic, atraumatic ENT: hearing grossly normal, normal voice Neck: full range of motion Respiratory: lungs clear, normal breath sounds, speaking full sentences Cardiovascular #1: regular rate, rhythm Gastrointestinal: normal bowel sounds, non tender, soft Genitourinary: normal inspection, no CVA tenderness, adnexa normal, other - Pelvic deferred by pt. Musculoskeletal: back normal, gait/station normal, normal range of motion, non- tender Neurologic: alert, oriented x3, responsive, motor strength/tone normal, sensory intact, normal gait, speech normal, grossly normal Psychiatric: judgement/insight normal Skin: normal color, no rash, warm/dry, well hydrated Lymphatic: no adenopathy Medical Decision Making PA Attestation Dr. Gauthier is my supervising Physician whom patient management has been discussed with. Diagnostic Impression: Primary Impression: Vaginitis Qualified Codes: N76.0 - Acute vaginitis ER Course 46-year-old female presents to the emergency department complaining of white/ creamy vaginal discharge in addition to malodor 4 days. Denies pain. Patient reports history of BV in the past and this has similar presentation. Patient also states after receiving antibiotic she typically gets a yeast infection. Patient denies recent unprotected intercourse she denies swollen tender lymph nodes, joint pain, fevers, chills, abdominal pain or tenderness, hematuria, frequency or urgency. Patient reports some dysuria and speculates that it is due to contact of genital area. Denies CP, Palpitations, LOC, AMS, dizziness, Changes in Vision, Sensation, paresthesias, or a sudden severe headache. Ddx considered but are not limited to UTi , Pyelo, STI, Stone, Cystitis, vaginal laceration, vaginitis. Vital signs: are WNL, pt. is afebrile H& PE are most consistent with: Vaginitis ORDERS: - UA : Pt. declines UA and wet mount stating she knows it;s BV. ED INTERVENTIONS: -None required at this time. DISCHARGE: At this time pt. is stable for d/c to home. Will provide printed patient care instructions, and any necessary prescriptions. Care plan and follow up instructions have been discussed with the patient prior to discharge. discussed with the patient prior to discharge. Last Vital Signs Date Time Temp Pulse Resp B/P (MAP) Pulse Ox O2 Delivery O2 Flow Rate FiO2 07/17/17 15:36 82 20 127/82 97 Room Air Disposition: HOME, SELF-CARE Condition: Stable Scripts Fluconazole (FLUCONAZOLE) 100 Mg Tablet 100 MG ORAL DAILY for 3 Days, #3 TAB 0 Refills Prov: Maribeth Cesar P.A. 07/17/17 Metronidazole* (FLAGYL*) 500 Mg Tablet 500 MG ORAL BID for 7 Days, #14 TAB Prov: Maribeth Cesar P.A. 07/17/17 Referrals: [facility] (PCP) Patient Instructions: Vaginitis Additional Instructions: Take medications as directed. Follow up with a Primary Care Provider in 3-5 days, even if your symptoms have resolved. --Please review list of primary care clinics, if you do not already have a primary care provider Return sooner to ED if new symptoms occur, or current symptoms become worse. - Please note that this Emergency Department Report was dictated using [employer] transcriptionist technology software, occasionally this can lead to erroneous entry secondary to interpretation by the dictation equipment. Maribeth Cesar July 17, 2017 16:11
[2017-07-17] MEDS ORDERED: FLUCONAZOLE100 MG ORAL (16:12)
[2017-07-17] MEDS ORDERED: METRONIDAZOLE500 MG ORAL (16:12)
[2017-07-17 16:24] VITALS: BP 127/82
== END 2017-07-17 16:25 | disposition home or self-care (01) ==
LOC: EMR 15:48
DX: N76.0 Acute vaginitis (principal); I10 Essential (primary) hypertension
CPT/HCPCS: 99284

== ENCOUNTER 2017-11-20 15:51 | Emergency (ER) | payer OTHER ==
[~2017-11-20] VITALS: Ht 172.7 cm; Wt 115.7 kg
[~2017-11-20 15:51] MED LIST changes: +METRONIDAZOLE500 MG ORAL
--- NOTE | 2017-11-20 16:09 | Emergency Room Report ---
History of Present Illness General Chief Complaint: Pain Source: Patient Present Illness HPI Patient with 2 days of left ankle pain. She states that she fractured that ankle in the past. She denies any other medical problems including hypertension and she's not taking water pills. She denies gout. Is no fever and no recent trauma. The pain is 7/10 and worse when she's walking. It doesn' t radiate to her calf. Allergies: Coded Allergies: No Known Allergies (Unverified , 05/01/12) Patient History Past Medical History: see triage record Social History: Denies: smoking Social History Narrative from home Last Menstrual Period: menopause Reviewed Nursing Documentation: PMH: Agreed; PSxH: Agreed Nursing Documentation-PMH Past Medical History: No History, Except For Hx Cardiac Problems: No - Anemia Hx Hypertension: No Hx Cancer: No Hx Gastrointestinal Problems: No History Of Psychiatric Problem: Yes - Anxiety Hx Neurological Problems: No Review of Systems Constitutional: Denies: fever Genitourinary: Reports: other - post menopausal Musculoskeletal: Reports: see HPI Skin: Reports: see HPI Neurological: Reports: see HPI Physical Exam Vital Signs Date Time Temp Pulse Resp B/P (MAP) Pulse Ox O2 Delivery O2 Flow Rate FiO2 11/20/17 15:58 98.6 86 16 122/77 97 Room Air 98.6 Sp02 EP Interpretation: reviewed, normal General Appearance: well appearing, no apparent distress Head: normocephalic, atraumatic ENT: hearing grossly normal, normal voice Neck: full range of motion, supple Respiratory: no respiratory distress, speaking full sentences Musculoskeletal: no calf tenderness, swelling, other - tenderness laterally and also anteriorly. Ligaments stable Neurologic: alert, normal gait Psychiatric: mood/affect normal Skin: no rash Medical Decision Making Diagnostic Impression: Primary Impression: Left ankle pain Additional Impression: Osteoarth NOS-ankle ER Course Patient presents with nontraumatic left ankle pain. She has a history of a prior fracture. Differential includes DJD, strain, sprain amongst others. X- rays indicated. Also Motrin will be given. X-ray shows degenerative changes. No fracture at this time. Minimal effusion. Uri is applied by the tech. Tension and position is excellent with improvement. Discussed findings with the patient and treatment plan. Patient is stable for outpatient observation and treatment. Other X-Ray Diagnostic Results Other X-Ray Diagnostic Results : X-Ray ordered: L ankle # of Views/Limited Vs Complete: 3 View Indication: Other EP Interpretation: Yes Interpretation: no dislocation, no soft tissue swelling, no fractures, other - DJD Impression: Other Electronically Signed by: Electronically signed by Marino Montes MD Status: improved Disposition: HOME, SELF-CARE Condition: Improved Marino Montes M.D. Nov 20, 2017 16:09
[2017-11-20 16:17] VITALS: BP 122/77
[2017-11-20] MEDS ORDERED: TYLENOL325 MG ORAL (16:48)
[2017-11-20] MEDS ORDERED: IBUPROFEN600 MG ORAL (16:48)
[2017-11-20 17:28] VITALS: BP 122/77
--- NOTE | 2017-11-21 13:32 | Diagnostic Imaging Report ---
Indication: Pain Technique: XRAY Ankle Compl Min 3v L Comparison: 06/01/2015 Findings: There is no evidence of acute fracture. Ankle mortise is intact on these nonstressed views. An unchanged amount fracture deformity of the distal tibia is again noted. No radiopaque foreign body identified. There is a small plantar calcaneal enthesophyte. Impression: * Chronic fracture deformity of the distal tibia, similar to the prior exam. No definite evidence of acute fracture. * Small plantar calcaneal enthesophyte.
== END 2017-11-20 16:52 | disposition home or self-care (01) ==
LOC: EMR 16:23
DX: M19.072 Primary osteoarthritis, left ankle and foot (principal); F41.9 Anxiety disorder, unspecified
CPT/HCPCS: 99283

== ENCOUNTER 2018-10-04 20:53 | Emergency (ER) | payer OTHER ==
[~2018-10-04] VITALS: Ht 172.7 cm; Wt 122.5 kg
[~2018-10-04 20:53] MED LIST changes: +KETOTIFEN FUMARA5 ML OP; +OCUFLOX5 ML OP; +TYLENOL325 MG ORAL; +[UNRECOGNIZED DRUG - OTHER] TP
--- NOTE | 2018-10-04 21:03 | NUR ---
ED Nurse Note: pt ambulated to ed c/o right ankle pain x1 week no obvious deformity, pt denies trauma to area. states that she had a injury 3 years ago to her right ankle. Addendum: 10/04/18 at 2107 by PDELEON ED Nurse Note: pt ambulated to ed c/o LEFT ankle pain x1 week no obvious deformity, pt denies trauma to area. states that she had a injury 3 years ago to her LEFT ankle.
[2018-10-04 21:06] VITALS: BP 149/85
--- NOTE | 2018-10-04 21:12 | NUR ---
ED Nurse Note: ACID ETCH OPERATOR AT BEDSIDE
--- NOTE | 2018-10-04 21:19 | NUR ---
ED Nurse Note: XRAY COMPLETED
[2018-10-04] MEDS ORDERED: IBUPROFEN600 MG ORAL (21:48)
[2018-10-04 21:54] VITALS: BP 144/83
--- NOTE | 2018-10-04 21:55 | NUR ---
ER DISCHARGE NOTE: Patient is cleared to be discharged per ERMD, pt is aox4, on room air, with stable vital signs. pt was given dc and prescription instructions, pt was able to verbalize understanding, pt id band removed. pt is able to ambulate with steady gait. pt took all belongings.
--- NOTE | 2018-10-05 11:13 | Diagnostic Imaging Report ---
Indication: left ankle pain Comparison: None Findings: 3 views of the left ankle obtained. Soft tissues are unremarkable. No acute fracture, malalignment, periostitis, or osteochondral defects are identified. There is a plantar calcaneal spur. Impression: No acute findings
--- NOTE | 2018-10-13 17:25 | Emergency Room Report ---
History of Present Illness General Chief Complaint: Pain Source: Patient, Medical Record Present Illness HPI Patient is a 48-year-old female who presented after increased left ankle pain. Patient reports having prior history of ankle fracture. She denies any recent injury. She reports having persistent pain with ambulation. She denies any increase in swelling. She reports having increased discomfort with weightbearing. Pain is sharp in nature. She denies any fever or other current locations of pain. Patient has been having pain for several days. Allergies: Coded Allergies: No Known Allergies (Unverified , 05/01/12) Patient History Past Medical History: see triage record Last Menstrual Period: hysterectomy Now: No : 1 Para: 0 Reviewed Nursing Documentation: PMH: Agreed; PSxH: Agreed Nursing Documentation-PMH Hx Cardiac Problems: No - Anemia Hx Hypertension: No Hx Cancer: No Hx Gastrointestinal Problems: No Hx Neurological Problems: No Review of Systems All Other Systems: negative except mentioned in HPI Physical Exam General Appearance: well appearing, no apparent distress, alert, GCS 15 Head: normocephalic, atraumatic ENT: hearing grossly normal, normal voice Neck: full range of motion, supple Respiratory: no respiratory distress, speaking full sentences Cardiovascular #1: normal inspection, no edema Gastrointestinal: normal inspection Musculoskeletal: no calf tenderness, decreased range of mation, other - chronic deformity to ankle joint Neurologic: normal inspection, alert, oriented x3, responsive, normal gait Psychiatric: mood/affect normal Skin: no rash Medical Decision Making Diagnostic Impression: Primary Impression: Ankle pain, left ER Course Patient presented for increased left ankle pain. Differential diagnosis include was not limited to traumatic arthritis, nonunion, osteomyelitis among others. X-ray imaging of the left ankle 3 views interpreted by me showed normal bony alignment with no evident acute fracture. Patient was given prescription for nonsteroidal anti-inflammatory medications. Advised to follow- up with her primary care physician for recheck. She is advised to return if worse. Status: improved Disposition: HOME, SELF-CARE Condition: Stable Scripts Ibuprofen* (MOTRIN*) 600 Mg Tablet 600 MG ORAL Q8H PRN for For Pain, #20 TAB 0 Refills Prov: Vishal Gauthier MD 10/04/18 Referrals: [facility] (PCP) Patient Instructions: Ankle Pain Vishal Gauthier MD Oct 13, 2018 17:25
== END 2018-10-04 21:55 | disposition home or self-care (01) ==
LOC: EMR 21:30
DX: M25.572 Pain in left ankle and joints of left foot (principal)
CPT/HCPCS: 99283

== ENCOUNTER 2018-11-08 12:48 | Emergency (ER) | payer OTHER ==
[~2018-11-08] VITALS: Ht 172.7 cm; Wt 122.5 kg
--- NOTE | 2018-11-08 13:00 | NUR ---
ED Nurse Note: Pt walked into ED x SOB x 2 days and state she has pressure like CP. No hx of asthma. AAO x4, ambulatory with mild SOB at rest. Lungs clear when auscultated. Sts at 100 % in room air.
--- NOTE | 2018-11-08 13:06 | NUR ---
HAND-OFF: Report given to Lesvia MOREAU.
[2018-11-08 13:13] VITALS: BP 142/102
[2018-11-08] MEDS ORDERED: Albuterol ud Inhalation HHN ONE (13:15)
[2018-11-08] MEDS ORDERED: Ipratropium 0.02% Inh Soln 2.5ml UD HHN ONE (13:15)
--- NOTE | 2018-11-08 13:17 | Emergency Room Report ---
History of Present Illness General Chief Complaint: Dyspnea/Respdistress Source: Patient (Yoseph Lopse MD) Present Illness HPI Disclaimer: Please note that this report is being documented using [employer] technology. This can lead to erroneous entry secondary to incorrect interpretation by the dictating instrument. HPI: 48-year-old female with no reported medical history presents for evaluation of shortness of breath. Symptoms have been present for approximately 3 days. She notes tightness in the chest but denies cough, sputum production or fever. She notes URI symptoms the previous week with nasal congestion, postnasal drip, bilateral ear fullness and a sore throat which have now been relieved. She denies any abdominal pain, vomiting, diarrhea. She notes mild chest discomfort sometimes describing it as a pressure but not of pain. Denies any recent long distance travel, immobilization, surgery, exogenous steroid use or prior history of DVT or PE. PMH: Denies PSH: Hysterectomy Allergies: Denies Social Hx: Denies tobacco use (Yoseph Lopes MD) Allergies: Coded Allergies: No Known Allergies (Unverified , 05/01/12) Patient History Last Menstrual Period: n/a (Yoseph Lopes MD) Nursing Documentation-PMH Past Medical History: No History, Except For Hx Cardiac Problems: No - Anemia Hx Hypertension: No Hx Cancer: No Hx Gastrointestinal Problems: No Hx Neurological Problems: No (Yoseph Lopes MD) Review of Systems All Other Systems: negative except mentioned in HPI (Yoseph Lopes MD) Physical Exam Vital Signs Date Time Temp Pulse Resp B/P (MAP) Pulse Ox O2 Delivery O2 Flow Rate FiO2 11/08/18 12:50 97.9 80 18 140/91 (107) 98 Room Air General: Awake and alert, no acute distress, speaking full sentences HEENT: NC/AT. EOMI. tolerating secretions. Speaking in full sentences. Cardiovascular: RRR. S1 and S2 normal. No murmur appreciated Resp: Normal work of breathing. Slight tachypnea. No cough, wheezing or crackles appreciated Abdomen: Abdomen is soft, nondistended. Nontender Skin: Intact. No abrasions, laceration or rash over the exposed skin MSK: Normal tone and bulk. Moving all extremities. No obvious deformity. Neuro: Awake and alert. Mentating appropriately. (Yoseph Lopes MD) Medical Decision Making Diagnostic Impression: Primary Impression: Dyspnea Qualified Codes: R06.00 - Dyspnea, unspecified Additional Impression: Upper respiratory infection Qualified Codes: J06.9 - Acute upper respiratory infection, unspecified ER Course 48-year-old female presents for evaluation shortness of breath and chest pressure. Differential includes was not limited to ACS, angina, bronchitis, pneumonia, asthma, allergic rhinitis, URI, viral syndrome, pneumothorax, PE. We will start broad metabolic and infectious work-up, chest x-ray, give breathing treatment and steroids. She is not in respiratory distress though she is slightly tachypneic her oxygen saturation is 100% on room air Laboratory Tests Test 11/08/18 13:15 White Blood Count 3.5 K/UL (4.8-10.8) L Red Blood Count 5.28 M/UL (4.20-5.40) Hemoglobin 13.8 G/DL (12.0-16.0) Hematocrit 42.8 % (37.0-47.0) Mean Corpuscular Volume 81 FL (80-99) Mean Corpuscular Hemoglobin 26.1 PG (27.0-31.0) L Mean Corpuscular Hemoglobin Concent 32.3 G/DL (32.0-36.0) Red Cell Distribution Width 12.9 % (11.6-14.8) Platelet Count 222 K/UL (150-450) Mean Platelet Volume 6.7 FL (6.5-10.1) Neutrophils (%) (Auto) 50.8 % (45.0-75.0) Lymphocytes (%) (Auto) 38.6 % (20.0-45.0) Monocytes (%) (Auto) 7.8 % (1.0-10.0) Eosinophils (%) (Auto) 1.2 % (0.0-3.0) Basophils (%) (Auto) 1.6 % (0.0-2.0) D-Dimer 0.53 mg/L FEU (0.00-0.49) H Sodium Level 144 MMOL/L (136-145) Potassium Level 4.1 MMOL/L (3.5-5.1) Chloride Level 109 MMOL/L (98-107) H Carbon Dioxide Level 23 MMOL/L (21-32) Anion Gap 12 mmol/L (5-15) Blood Urea Nitrogen 19 mg/dL (7-18) H Creatinine 0.9 MG/DL (0.55-1.30) Estimate Glomerular Filtration Rate > 60 mL/min (>60) Glucose Level 83 MG/DL (74-106) Calcium Level 8.9 MG/DL (8.5-10.1) Total Bilirubin 0.2 MG/DL (0.2-1.0) Aspartate Amino Transferase (AST) 26 U/L (15-37) Alanine Aminotransferase (ALT) 20 U/L (12-78) Alkaline Phosphatase 85 U/L (46-116) Total Creatine Kinase 266 U/L (26-308) Creatine Kinase MB 2.8 NG/ML (0.0-3.6) Creatine Kinase MB Relative Index 1.0 Troponin I 0.000 ng/mL (0.000-0.056) Total Protein 8.0 G/DL (6.4-8.2) Albumin 3.8 G/DL (3.4-5.0) Globulin 4.2 g/dL Albumin/Globulin Ratio 0.9 (1.0-2.7) L (Yoseph Lopes MD) ER Course Please see above note. Patient feels better. CTA neg for PE. Discussion of etiologies of dyspnea, treatment plan and follow up. Patient stable for outpatient observation and treatment. (Marino Montes MD) EKG Diagnostic Results EKG Time: 13:10 Rate: normal Rhythm: NSR ST Segments: no acute changes Other Impression Sinus rhythm, normal axis, normal intervals, no acute ST changes precordial and inferior Q waves (Yoseph Lopes MD) Rhythm Strip Diag. Results Rhythm Strip Time: 13:10 EP Interpretation: yes Rate: 70s Rhythm: NSR, no PVC's, no ectopy (Yoseph Lpoes MD) EP Interpretation: yes Rhythm: NSR, no PVC's, no ectopy (Marino Montes MD) Chest X-Ray Diagnostic Results Chest X-Ray Diagnostic Results : Chest X-Ray Ordered: Yes # of Views/Limited/Complete: 1 View Indication: Shortness of Breath EP Interpretation: Yes Interpretation: no consolidation, no effusion, no pneumothorax, other - Mild bilateral vascular congestion Impression: No acute disease Electronically Signed by: Electronically signed by Dr. Yoseph Lopes (Yoseph Lopes MD) CT/MRI/US Diagnostic Results CT/MRI/US Diagnostic Results : Imaging Test Ordered: CTA chest Impression Impression: No evidence of acute pulmonary embolus or other acute thoracic pathology Small bilateral pulmonary parenchymal air cysts Bilateral lower lobe atelectasis or scarring Incidental finding of small accessory splenule (Marino Montes MD) Reevaluation Time: 14:48 Last Vital Signs Date Time Temp Pulse Resp B/P (MAP) Pulse Ox O2 Delivery O2 Flow Rate FiO2 11/08/18 13:13 97.9 79 12 142/102 100 Room Air Status: improved Reevaluation Impression Patient notes some improvement after receiving breathing treatments and oral prednisone. Labs have returned largely within normal limits except for a slightly elevated d-dimer past the upper limit of normal. Will obtain a CTA. She remains mildly tachypneic but oxygenation is 100% on room air, no tachycardia. Labs are otherwise within normal limits. Will sign out to oncoming physician pending CTA results and anticipate discharge home barring no significant findings (Yoseph Lopes MD) Last Vital Signs Date Time Temp Pulse Resp B/P (MAP) Pulse Ox O2 Delivery O2 Flow Rate FiO2 11/08/18 16:39 97.9 82 14 132/82 99 Room Air 21 Status: improved (Marino Montes MD) Disposition: HOME, SELF-CARE Condition: Improved Scripts Prednisone* (PREDNISONE*) 20 Mg Tablet 40 MG ORAL DAILY for 2 Days, #4 TAB Prov: Yoseph Lopes MD 11/08/18 Albuterol Sulfate* (ALBUTEROL SULFATE MDI*) 8.5 Gm Hfa.aer.ad 2 PUFF INH Q4H PRN for cough/wheezing, #1 EA 0 Refills Prov: Yoseph Lopes MD 11/08/18 Yoseph Lopes MD Nov 08, 2018 13:17 Marino Montes MD Nov 08, 2018 16:26
[2018-11-08 13:41] LABS: BASOPHILS % (AUTO) 1.6 % (0.0-2.0); EOSINOPHILS % (AUTO) 1.2 % (0.0-3.0); HEMATOCRIT 42.8 % (37.0-47.0); HEMOGLOBIN 13.8 G/DL (12.0-16.0); LYMPHOCYTES % (AUTO) 38.6 % (20.0-45.0); MEAN CORPUSCULAR VOLUME 81 FL (80-99); MONOCYTES % (AUTO) 7.8 % (1.0-10.0); NEUTROPHILS % (AUTO) 50.8 % (45.0-75.0); PLATELET COUNT 222 K/UL (150-450); RED BLOOD COUNT 5.28 M/UL (4.20-5.40); RED CELL DISTRIBUTION WIDTH 12.9 % (11.6-14.8); WHITE BLOOD COUNT 3.5 K/UL (4.8-10.8)
[2018-11-08 13:54] LABS: ANION GAP 12 mmol/L (5-15); BLOOD UREA NITROGEN 19 mg/dL (7-18); CALCIUM 8.9 MG/DL (8.5-10.1); CARBON DIOXIDE 23 MMOL/L (21-32); CHLORIDE 109 MMOL/L (98-107); CREATININE 0.9 MG/DL (0.55-1.30); POTASSIUM 4.1 MMOL/L (3.5-5.1); SODIUM 144 MMOL/L (136-145)
[2018-11-08 14:05] LABS: ALANINE AMINOTRANSFERASE 20 U/L (12-78); ALBUMIN 3.8 G/DL (3.4-5.0); ALBUMIN/GLOBULIN RATIO 0.9 (1.0-2.7); ALKALINE PHOSPHATASE 85 U/L (46-116); ASPARTATE AMINO TRANSFERASE 26 U/L (15-37); BILIRUBIN,TOTAL 0.2 MG/DL (0.2-1.0); CKMB 2.8 NG/ML (0.0-3.6); CREATINE KINASE 266 U/L (26-308)
--- NOTE | 2018-11-08 14:42 | Diagnostic Imaging Report ---
Indication: Chest pain Technique: One view of the chest Comparison: 04/19/2016 Findings: The lungs and pleural spaces are clear. The heart size is normal. There are degenerative changes of the thoracic spine. There is no significant interim change Impression: No acute process
[2018-11-08] MEDS ORDERED: Isovue-370 150ml vial INJ PRN (14:45)
[2018-11-08] MEDS ORDERED: PREDNISONE20 MG ORAL (15:10)
[2018-11-08] MEDS ORDERED: ALBUTEROL SULF8.5 GM INH (15:10)
--- NOTE | 2018-11-08 15:10 | NUR ---
ED Nurse Note: patient went to CT scan
--- NOTE | 2018-11-08 16:16 | Diagnostic Imaging Report ---
ndication: Shortness of breath x2 days, pressure-like chest pain Technique: IV administration nonionic contrast. Spiral acquisitions obtained from the lung bases to the lung apices. Multiplanar and 3-D reconstructions were generated. Total dose length product 1155.01 mGycm. CTDIvol(s) 30.37 mGy. Dose reduction achieved using automated exposure control Comparison: Conventional chest CT dated 12/07/2018 Findings: There is adequate opacification of the pulmonary arteries. No intraluminal filling defects or other findings to suggest acute pulmonary embolus demonstrated. Normal caliber pulmonary arteries. No evidence of thoracic aortic aneurysm or dissection. Normal caliber of the great neck vessels. Variant branching anatomy of the great neck vessels, with common origin of the right brachiocephalic and left common carotid arteries. No evidence of right ventricular dilatation. Normal heart size. The lungs demonstrate some atelectasis or scarring in the posterior medial right lower lobe. A small air cyst is seen in the posterior inferior right upper lobe. Another tiny air cyst is seen in the posterior left upper lobe. Some linear atelectasis or scarring is seen in the inferomedial left lower lobe. The lungs and pleural spaces are otherwise clear. No infiltrates, effusions, masses, or nodules demonstrated. No mediastinal or hilar mass or adenopathy. No pericardial effusion demonstrated. The included portion of the thyroid is unremarkable. No axillary or chest wall mass or adenopathy. The bones are unremarkable. The included upper abdominal viscera are unremarkable except for a small accessory splenule. Impression: No evidence of acute pulmonary embolus or other acute thoracic pathology Small bilateral pulmonary parenchymal air cysts Bilateral lower lobe atelectasis or scarring Incidental finding of small accessory splenule The CT scanner at [facility] is accredited by the [employer] and the scans are performed using protocols designed to limit radiation exposure to as low as reasonably achievable to attain images of sufficient resolution adequate for diagnostic evaluation.
[2018-11-08 16:38] VITALS: BP 132/82
[2018-11-08 16:39] VITALS: BP 132/82
--- NOTE | 2018-11-08 16:39 | NUR ---
ER DISCHARGE NOTE: Patient is cleared to be discharged per ERMD, pt is aox4, on room air, with stable vital signs. pt was given dc and prescription instructions, pt was able to verbalize understanding, pt id band and iv site removed without complications. pt is able to ambulate with steady gait. pt took all belongings.ED
--- NOTE | 2018-11-11 13:16 | Cardiology Report ---
APPROVED REPORT EKG Measurement Heart [id number] Normal sinus rhythm Septal infarct, age undetermined Abnormal ECG
== END 2018-11-08 16:40 | disposition home or self-care (01) ==
LOC: EMR 14:13
DX: J06.9 Acute upper respiratory infection, unspecified (principal); Z90.710 Acquired absence of both cervix and uterus
CPT/HCPCS: 36415; 71045; 71275; 80053; 82550; 82553; 84484; 85025; 85379; 93005; 94640; 94664; J7512; Q9967; Z7502; 99284

== ENCOUNTER 2018-11-13 18:37 | Emergency (ER) | payer OTHER ==
[~2018-11-13] VITALS: Ht 172.7 cm; Wt 122.5 kg
[~2018-11-13 18:37] MED LIST changes: +PREDNISONE20 MG ORAL
--- NOTE | 2018-11-13 19:08 | NUR ---
ED Nurse Note: Report given to LIZZETH Garibay.
--- NOTE | 2018-11-13 19:09 | NUR ---
ED Nurse Note: Pt came in from home due to SOB and throat tightness and pain since Tuesday11/10/18. SAT 100% upon arrival. Pain 11/07 matt. Pt has hx of Bronchitis. AOx4, VSS at this time. Will cont to monitor.
--- NOTE | 2018-11-13 19:09 | NUR ---
ED Nurse Note: Accesory muscles used with inspiration and expiration. Lung sounds clear.
[2018-11-13 19:10] VITALS: BP 115/70
--- NOTE | 2018-11-13 19:10 | NUR ---
ED Nurse Note: Recieved report from Maria Teresa MOREAU. Patient alert and oriented, verbally reponsive. No SOB. Afebrile. VSS. MD at bedside. Will continue with plan of care.
[2018-11-13] MEDS ORDERED: Albuterol/Ipratropium 3ml neb HHN ONE (19:15)
--- NOTE | 2018-11-13 19:32 | NUR ---
ED Nurse Note: RT at bedside.
[2018-11-13] MEDS ORDERED: PREDNISONE20 MG ORAL (20:06)
[2018-11-13 20:13] VITALS: BP 120/88
--- NOTE | 2018-11-13 20:13 | NUR ---
ED Nurse Note: Pt cleared by ERMD for discharge. DC instructions/prescription was given and explained to pt and verbalized understanding of teachings. All medical deviecs such as ID band removed. Pt is AAO x4, ambulatory and left with all personal belongings.
--- NOTE | 2018-11-15 10:41 | Emergency Room Report ---
History of Present Illness General Chief Complaint: Dyspnea/Respdistress Source: Patient Present Illness HPI Patient is a 48 year old female who presents for nonproductive cough for 3 days , gradual onset days prior to arrival. mild headache and associated sore throat, increased congestion. Taking over the counter cough medications. Reports no fever. Some shortness of breath. Denies chest pain. No leg pain or swelling. no prior cardiac history. Denies smoking. Recently started on albuterol and had CTA of chest with no evident PE. Allergies: Coded Allergies: No Known Allergies (Unverified , 05/01/12) Patient History Past Medical History: see triage record Last Menstrual Period: none Now: No Reviewed Nursing Documentation: PMH: Agreed; PSxH: Agreed Nursing Documentation-PMH Past Medical History: No History, Except For Hx Cardiac Problems: No - Anemia Hx Hypertension: No Hx Cancer: No Hx Gastrointestinal Problems: No History Of Psychiatric Problem: Yes - anxiety Hx Neurological Problems: No Review of Systems All Other Systems: negative except mentioned in HPI Physical Exam Vital Signs Date Time Temp Pulse Resp B/P (MAP) Pulse Ox O2 Delivery O2 Flow Rate FiO2 11/13/18 18:52 98.2 91 20 112/83 (93) 100 Room Air 11/13/18 19:40 21 Sp02 EP Interpretation: reviewed, normal General Appearance: normal inspection, alert, GCS 15, mild distress Head: atraumatic ENT: normal ENT inspection, hearing grossly normal, normal voice Neck: normal inspection, full range of motion, supple, no bony tend Respiratory: normal inspection, no respiratory distress, no retraction, wheezing Cardiovascular #1: regular rate, rhythm, no edema Gastrointestinal: normal inspection, normal bowel sounds, non tender, soft, no guarding, no hernia Genitourinary: no CVA tenderness Musculoskeletal: normal inspection, back normal, normal range of motion Neurologic: normal inspection, alert, oriented x3, responsive, automobile inspector III-XII nml as tested, speech normal Psychiatric: normal inspection, judgement/insight normal, mood/affect normal Skin: no rash Medical Decision Making Diagnostic Impression: Primary Impression: Bronchitis ER Course Patient presented for shortness of breath. Differential diagnosis included but was not limited to asthma exacerbation, pneumonia, pneumothorax, congestive heart failure, viral respiratory infection, pulmonary embolism, anaphylaxis among others. Patient was placed in the examination room and evaluated by me immediately. Patient was checked periodically to assure stability and response to treatment. She was given breathing treatment as well as steroids. She was reexamined after breathing treatment and had improvement in air movement. Patient's prior CT imaging showed no evidence of pulmonary embolism. Patient does not appear to require CT imaging. Patient appears stable for outpatient follow up. Patient advised to return if worse. Labs Test 11/13/18 20:04 Urine HCG, Qualitative Negative (NEGATIVE) Last Vital Signs Date Time Temp Pulse Resp B/P (MAP) Pulse Ox O2 Delivery O2 Flow Rate FiO2 11/13/18 20:13 98.3 98 18 120/88 99 Room Air 21 Status: improved Disposition: HOME, SELF-CARE Condition: Stable Scripts Prednisone* (PREDNISONE*) 20 Mg Tablet 40 MG ORAL DAILY, #10 TAB Prov: Vishal Gauthier MD 11/13/18 Referrals: [facility] (PCP) Patient Instructions: Chronic Obstructive Pulmonary Disease Exacerbation Vishal Gauthier MD Nov 15, 2018 10:41
== END 2018-11-13 20:15 | disposition home or self-care (01) ==
LOC: EMR 20:05
DX: J40 Bronchitis, not specified as acute or chronic (principal); F41.9 Anxiety disorder, unspecified
CPT/HCPCS: 81025; 94640; 94664; J7512; Z7502; 99284; J7620

== ENCOUNTER 2018-11-28 22:56 | Emergency (ER) | payer OTHER ==
[~2018-11-28] VITALS: Ht 172.7 cm; Wt 122.9 kg
--- NOTE | 2018-11-28 23:04 | NUR ---
ED Nurse Note: Pt ambulated to ED from home , c/o sob x1hr, pt has hx of emphysema. Pt used inhaler without relief. VSS
[2018-11-28 23:10] VITALS: BP 99/78
--- NOTE | 2018-11-28 23:30 | Emergency Room Report ---
History of Present Illness General Chief Complaint: Dyspnea/Respdistress Source: Patient Present Illness HPI 48-year-old female, presents with cough, shortness of breath 2 days prior to arrival, year-old history of COPD alleviated with albuterol unknown aggravating factors severity is moderate, constant she is been coughing over the past week, no fevers no chills no chest pain, she endorses some lung tightness, shortness of breath severity is moderate, constant. Patient presents for evaluation Allergies: Coded Allergies: No Known Allergies (Unverified , 05/01/12) Patient History Past Medical History: see triage record Last Menstrual Period: HYSTERECTOMY Reviewed Nursing Documentation: PMH: Agreed; PSxH: Agreed Nursing Documentation-PMH Past Medical History: No History, Except For Hx Cardiac Problems: No - Anemia Hx Hypertension: No Hx Cancer: No Hx Gastrointestinal Problems: No Hx Neurological Problems: No Review of Systems All Other Systems: negative except mentioned in HPI Physical Exam Vital Signs Date Time Temp Pulse Resp B/P (MAP) Pulse Ox O2 Delivery O2 Flow Rate FiO2 11/28/18 23:04 97.7 93 19 99/78 (85) 100 Room Air Sp02 EP Interpretation: reviewed, normal General Appearance: well appearing, no apparent distress, alert Head: normocephalic, atraumatic Eyes: bilateral eye PERRL, bilateral eye EOMI ENT: uvula midline, moist mucus membranes Neck: supple, thyroid normal, supple/symm/no masses Respiratory: no respiratory distress, no retraction, no accessory muscle use, wheezing - moderate Cardiovascular #1: normal peripheral pulses, regular rate, rhythm, no edema, no gallop, no murmur Gastrointestinal: non tender, soft, no guarding, no rebound Musculoskeletal: normal inspection Neurologic: alert, oriented x3 Psychiatric: mood/affect normal Skin: no rash, warm/dry Medical Decision Making Diagnostic Impression: Primary Impression: COPD exacerbation ER Course 48-year-old female presents with acute shortness of breath differential diagnosis includes COPD exacerbation, pneumonia, ACS Patient with COPD exacerbation, steroids given, breathing treatments, reevaluation at 12:49 AM, wheezing has resolved, patient is breathing better patient wants to go home Disposition home with return precautions Laboratory Tests Test 11/28/18 23:30 White Blood Count 4.8 K/UL (4.8-10.8) Red Blood Count 5.03 M/UL (4.20-5.40) Hemoglobin 13.4 G/DL (12.0-16.0) Hematocrit 40.4 % (37.0-47.0) Mean Corpuscular Volume 80 FL (80-99) Mean Corpuscular Hemoglobin 26.5 PG (27.0-31.0) L Mean Corpuscular Hemoglobin Concent 33.0 G/DL (32.0-36.0) Red Cell Distribution Width 13.4 % (11.6-14.8) Platelet Count 217 K/UL (150-450) Mean Platelet Volume 7.3 FL (6.5-10.1) Neutrophils (%) (Auto) 59.6 % (45.0-75.0) Lymphocytes (%) (Auto) 27.4 % (20.0-45.0) Monocytes (%) (Auto) 9.2 % (1.0-10.0) Eosinophils (%) (Auto) 1.9 % (0.0-3.0) Basophils (%) (Auto) 1.9 % (0.0-2.0) Sodium Level 142 MMOL/L (136-145) Potassium Level 3.7 MMOL/L (3.5-5.1) Chloride Level 108 MMOL/L (98-107) H Carbon Dioxide Level 27 MMOL/L (21-32) Anion Gap 7 mmol/L (5-15) Blood Urea Nitrogen 12 mg/dL (7-18) Creatinine 1.1 MG/DL (0.55-1.30) Estimate Glomerular Filtration Rate > 60 mL/min (>60) Glucose Level 85 MG/DL (74-106) Calcium Level 8.8 MG/DL (8.5-10.1) Total Bilirubin 0.2 MG/DL (0.2-1.0) Aspartate Amino Transferase (AST) 14 U/L (15-37) L Alanine Aminotransferase (ALT) 21 U/L (12-78) Alkaline Phosphatase 91 U/L (46-116) Troponin I 0.000 ng/mL (0.000-0.056) Total Protein 7.2 G/DL (6.4-8.2) Albumin 3.3 G/DL (3.4-5.0) L Globulin 3.9 g/dL Albumin/Globulin Ratio 0.8 (1.0-2.7) L EKG Diagnostic Results EKG Time: 23:18 EP Interpretation: NSR RATE [address] QTC [address] elevations, normal axis Rhythm Strip Diag. Results Rhythm Strip Time: 23:25 EP Interpretation: yes Rate: 90 Rhythm: NSR, no PVC's, no ectopy Chest X-Ray Diagnostic Results Chest X-Ray Diagnostic Results : Chest X-Ray Ordered: Yes # of Views/Limited/Complete: 1 View Indication: Shortness of Breath EP Interpretation: Yes Interpretation: no consolidation, no effusion, no pneumothorax, no acute cardiopulmonary disease Impression: No acute disease Electronically Signed by: Manuel Amor MD Last Vital Signs Date Time Temp Pulse Resp B/P (MAP) Pulse Ox O2 Delivery O2 Flow Rate FiO2 11/28/18 23:15 93 19 Room Air 11/28/18 23:10 97.7 99/78 100 Disposition: HOME, SELF-CARE Condition: Stable Scripts Albuterol Sulfate* (ALBUTEROL SULFATE MDI*) 8.5 Gm Hfa.aer.ad 2 PUFF INH Q4H PRN for Shortness of Breath, #1 EA 0 Refills Prov: Manuel Amor MD 11/29/18 Prednisone* (PREDNISONE*) 50 Mg Tablet 50 MG ORAL DAILY, #4 TAB 0 Refills Prov: Manuel Amor MD 11/29/18 Referrals: [facility] (PCP) [facility] Estee Fernandez [facility] Patient Instructions: Chronic Obstructive Pulmonary Disease Exacerbation Additional Instructions: The patient was provided with discharge instructions, notified to follow-up with a primary care doctor and or specialist in the next 24-48 hours, and to return to the ED if they have worsening of their symptoms. Please note that this report is being documented using [employer] technology. This can lead to erroneous entry secondary to incorrect interpretation by the dictating instrument. Manuel Amor MD Nov 28, 2018 23:30
[2018-11-28 23:47] LABS: BASOPHILS % (AUTO) 1.9 % (0.0-2.0); EOSINOPHILS % (AUTO) 1.9 % (0.0-3.0); HEMATOCRIT 40.4 % (37.0-47.0); HEMOGLOBIN 13.4 G/DL (12.0-16.0); LYMPHOCYTES % (AUTO) 27.4 % (20.0-45.0); MEAN CORPUSCULAR VOLUME 80 FL (80-99); MONOCYTES % (AUTO) 9.2 % (1.0-10.0); NEUTROPHILS % (AUTO) 59.6 % (45.0-75.0); PLATELET COUNT 217 K/UL (150-450); RED BLOOD COUNT 5.03 M/UL (4.20-5.40); RED CELL DISTRIBUTION WIDTH 13.4 % (11.6-14.8); WHITE BLOOD COUNT 4.8 K/UL (4.8-10.8)
[2018-11-28 23:57] LABS: ANION GAP 7 mmol/L (5-15); BLOOD UREA NITROGEN 12 mg/dL (7-18); CALCIUM 8.8 MG/DL (8.5-10.1); CARBON DIOXIDE 27 MMOL/L (21-32); CHLORIDE 108 MMOL/L (98-107); CREATININE 1.1 MG/DL (0.55-1.30); POTASSIUM 3.7 MMOL/L (3.5-5.1); SODIUM 142 MMOL/L (136-145)
[2018-11-28] MEDS: Ipratropium 0.02% Inh Soln 2.5ml UD HHN SCH (23:58)
[2018-11-28] MEDS: Albuterol ud Inhalation HHN SCH (23:58)
[2018-11-29 00:02] LABS: ALANINE AMINOTRANSFERASE 21 U/L (12-78); ALBUMIN 3.3 G/DL (3.4-5.0); ALBUMIN/GLOBULIN RATIO 0.8 (1.0-2.7); ALKALINE PHOSPHATASE 91 U/L (46-116); ASPARTATE AMINO TRANSFERASE 14 U/L (15-37); BILIRUBIN,TOTAL 0.2 MG/DL (0.2-1.0)
[2018-11-29] MEDS: Ipratropium 0.02% Inh Soln 2.5ml UD HHN SCH ×2 (00:06→00:12)
[2018-11-29] MEDS: Albuterol ud Inhalation HHN SCH ×2 (00:06→00:12)
[2018-11-29] MEDS ORDERED: ALBUTEROL SULF8.5 GM INH (00:51)
[2018-11-29] MEDS ORDERED: PREDNISONE50 MG ORAL (00:51)
[2018-11-29 01:00] VITALS: BP 99/78
--- NOTE | 2018-11-29 01:00 | NUR ---
ER DISCHARGE NOTE: Patient is cleared to be discharged per ERMD, pt is aox4, on room air, with stable vital signs. pt was given dc and prescription instructions, pt was able to verbalize understanding, pt id band and iv site removed without complications. pt is able to ambulate with steady gait. pt took all belongings.
--- NOTE | 2018-11-29 10:28 | Diagnostic Imaging Report ---
Indication: Dyspnea Comparison: 11/08/2018 A single view chest radiograph was obtained. Findings: Cardiomediastinal appearance is within normal limits for age. The lungs are clear. Pulmonary vascularity is appropriate. The diaphragmatic contour is smooth and costophrenic angles are sharp. No pleural effusions are identified. The bones are unremarkable. Impression: No acute findings
--- NOTE | 2018-11-29 16:18 | Cardiology Report ---
APPROVED REPORT EKG Measurement Heart [id number] Normal sinus rhythm Cannot rule out Anterior infarct, age undetermined Abnormal ECG
== END 2018-11-29 01:00 | disposition home or self-care (01) ==
LOC: EMR 23:10
DX: J44.1 Chronic obstructive pulmonary disease with (acute) exacerbation (principal); Z90.710 Acquired absence of both cervix and uterus
CPT/HCPCS: 36415; 71045; 80053; 84484; 85025; 93005; 94640; 94664; J7512; Z7502; 99284

== ENCOUNTER 2019-02-28 09:06 | Emergency (ER) | payer OTHER ==
[~2019-02-28] VITALS: Ht 172.7 cm; Wt 120.2 kg
[~2019-02-28 09:06] MED LIST changes: +NITROFURANTOIN100 M2 ORAL; +PREDNISONE50 MG ORAL
[2019-02-28 09:15] VITALS: BP 143/87
--- NOTE | 2019-02-28 09:20 | NUR ---
ED Nurse Note: Patient walked into ED from home c/o left thumb numbness, she heard popping sound from the thumb while she was brushing her hair yesterday. Also, she c/o vaginal itchiness. patient reports she does not have UTI, denies any burning or dysuria. patient reports she did check herself at home and states that she has bacterial infection. reports hx of hysteretomy. RN provided hospital gown, patient declined to change into a gown stating "I already know what I have."
[2019-02-28 10:16] LABS: APPEARANCE,URINE CLEAR; BILIRUBIN, URINE NEGATIVE (NEGATIVE); COLOR,URINE PALE YELLOW; GLUCOSE, URINE (UA) NEGATIVE (NEGATIVE); KETONES,URINE NEGATIVE (NEGATIVE); LEUKOCYTE ESTERASE ,URINE NEGATIVE (NEGATIVE); NITRITE,URINE NEGATIVE (NEGATIVE); PH,URINE 8 (4.5-8.0); PROTEIN,URINE NEGATIVE (NEGATIVE); UROBILINOGEN,URINE NORMAL MG/DL (0.0-1.0)
[2019-02-28] MEDS ORDERED: METRONIDAZOLE500 MG ORAL (10:22)
[2019-02-28] MEDS ORDERED: DIFLUCAN200 MG ORAL (10:22)
--- NOTE | 2019-02-28 10:22 | Emergency Room Report ---
History of Present Illness General Chief Complaint: Female Urogenital Problems Source: Patient Present Illness HPI 48-year-old female history of bacterial vaginosis presents with complaints of discharge, she states that she has another bacterial vaginosis, requesting metronidazole, and fluconazole, in addition patient also endorses a left thumb popping noted when she moves her thumb in a odd manner, patient reports that this is nontraumatic, she feels that there is been slipping severity is mild, intermittent, no fevers no chills, she denies any trauma to the left thumb. Allergies: Coded Allergies: No Known Allergies (Unverified , 05/01/12) Patient History Past Medical History: see triage record Last Menstrual Period: no period Reviewed Nursing Documentation: PMH: Agreed; PSxH: Agreed Nursing Documentation-PMH Past Medical History: No History, Except For Hx Hypertension: No Hx Cancer: No Hx Gastrointestinal Problems: No Hx Neurological Problems: No Review of Systems All Other Systems: negative except mentioned in HPI Physical Exam Vital Signs Date Time Temp Pulse Resp B/P (MAP) Pulse Ox O2 Delivery O2 Flow Rate FiO2 02/28/19 09:15 98.1 81 17 143/87 96 Room Air General Appearance: well appearing, no apparent distress Head: normocephalic, atraumatic Eyes: bilateral eye PERRL, bilateral eye EOMI ENT: hearing grossly normal, normal voice Neck: full range of motion, supple Respiratory: no respiratory distress, speaking full sentences Musculoskeletal: other - Left upper extremity: 2+ radial pulses, thumb when she extends slips, but no evidence of fracture mild pain to palpation, no evidence of trauma Neurologic: alert, normal gait Psychiatric: mood/affect normal Skin: no rash Medical Decision Making Diagnostic Impression: Primary Impression: Bacterial Vaginosis Additional Impression: Left thumb sprain Qualified Codes: S63.602A - Unspecified sprain of left thumb, initial encounter ER Course 48-year-old female is requesting treatment for bacterial vaginosis will provide treatment, differential for left thumb pain, sprain, slipping of the tendon, fracture, low suspicion for fracture no trauma, patient states that when she moves her thumb a certain way it slips. Counseled patient to follow-up with orthopedics, a form was given to follow-up with orthopedic urgent care Will provide metronidazole and fluconazole disposition home with return precautions Last Vital Signs Date Time Temp Pulse Resp B/P (MAP) Pulse Ox O2 Delivery O2 Flow Rate FiO2 02/28/19 09:15 98.1 81 17 143/87 (105) 96 Room Air Disposition: HOME, SELF-CARE Condition: Stable Scripts Metronidazole* (FLAGYL*) 500 Mg Tablet 500 MG ORAL BID for 7 Days, #14 TAB Prov: Manuel Amor MD 02/28/19 Fluconazole* (DIFLUCAN*) 200 Mg Tablet 200 MG ORAL DAILY, #2 TAB 0 Refills Prov: Manuel Amor MD 02/28/19 Referrals: [facility]ERR[facility] (PCP) [facility] Patient Instructions: Bacterial Vaginosis, [id number], Thumb Sprain, Vaginal Yeast Infection, Adult Additional Instructions: The patient was provided with discharge instructions, notified to follow-up with a primary care doctor and or specialist in the next 24-48 hours, and to return to the ED if they have worsening of their symptoms. Please note that this report is being documented using [employer] technology. This can lead to erroneous entry secondary to incorrect interpretation by the dictating instrument. Manuel Amor MD Feb 28, 2019 10:22
[2019-02-28 10:25] VITALS: BP 143/87
--- NOTE | 2019-02-28 10:28 | NUR ---
ER DISCHARGE NOTE: Patient is cleared to be discharged per ERMD DR CASTANON, pt is aox4, on room air, with stable vital signs. pt was given dc and prescription instructions, pt was able to verbalize understanding, pt id band removed without complications. pt is able to ambulate with steady gait. pt took all belongings.
== END 2019-02-28 10:22 | disposition home or self-care (01) ==
LOC: EMR 09:35
DX: N76.0 Acute vaginitis (principal); S63.602A Unspecified sprain of left thumb, initial encounter; X58.XXXA Exposure to other specified factors, initial encounter; Y92.9 Unspecified place or not applicable
CPT/HCPCS: 81003; 81025; Z7502; 99283

== ENCOUNTER → 2019-05-12 | Emergency (ER) | payer OTHER ==
[~2019-05-12] VITALS: Ht 172.7 cm; Wt 128.4 kg
[~2019-05-12] MED LIST changes: +DIFLUCAN200 MG ORAL
[2019-05-12 17:45] VITALS: BP 120/72
--- NOTE | 2019-05-12 17:50 | Emergency Room Report ---
History of Present Illness General Chief Complaint: Vaginal Source: Patient Present Illness HPI 48-year-old female with a history of recurrences of bacterial vaginosis here complaining of another episode of BV. Reports that every time that she is sexually active she says getting BV after. Has any urinary frequency and urgency. Does not want be tested for any UTI, and refuses to get treatment prophylactically for STDs. Reports that she is leaving town tomorrow and wants to start taking medication for BV. Reports that Flagyl often causes her yeast infection. Has already been seen by pediatric associate. Denies . Reports that she had a hysterectomy done status post total hysterectomy many years ago. Denies any fever and chills, recent travel, cough and congestion. COVID-19 risk:Travel to affect: No Allergies: Coded Allergies: No Known Allergies (Unverified , 05/01/12) Patient History Past Medical History: see triage record Past Surgical History: none Pertinent Family History: none Now: No Immunizations: UTD Reviewed Nursing Documentation: PMH: Agreed; PSxH: Agreed Nursing Documentation-PMH Past Medical History: No History, Except For Hx Hypertension: No Hx Cancer: No Hx Gastrointestinal Problems: No Hx Neurological Problems: No Review of Systems All Other Systems: negative except mentioned in HPI Physical Exam Vital Signs Date Time Temp Pulse Resp B/P (MAP) Pulse Ox O2 Delivery O2 Flow Rate FiO2 05/12/19 17:33 98.1 84 16 120/72 (88) 98 Room Air Sp02 EP Interpretation: reviewed, normal General Appearance: no apparent distress, alert, GCS 15, non-toxic Head: normocephalic, atraumatic Eyes: bilateral eye normal inspection, bilateral eye PERRL ENT: hearing grossly normal, normal pharynx, no angioedema, normal voice Neck: full range of motion, supple/symm/no masses Respiratory: chest non-tender, lungs clear, normal breath sounds, no rhonchi, no respiratory distress, no retraction, speaking full sentences Cardiovascular #1: regular rate, rhythm, no edema, no murmur Gastrointestinal: non tender, soft Rectal: deferred Genitourinary: no CVA tenderness Musculoskeletal: back normal Neurologic: alert, motor strength/tone normal, oriented x3, sensory intact, responsive, speech normal Psychiatric: normal inspection, judgement/insight normal Skin: no rash Lymphatic: no adenopathy Medical Decision Making PA Attestation All diagnoses and treatment plans were reviewed and discussed with my supervising physician Dr. Montes Diagnostic Impression: Primary Impression: Vaginitis ER Course 48-year-old female with a history of recurrences of bacterial vaginosis here complaining of another episode of BV. Reports that every time that she is sexually active she says getting BV after. Has any urinary frequency and urgency. Does not want be tested for any UTI, and refuses to get treatment prophylactically for STDs. Reports that she is leaving town tomorrow and wants to start taking medication for BV. Reports that Flagyl often causes her yeast infection. Has already been seen by pediatric associate. Denies . Reports that she had a hysterectomy done status post total hysterectomy many years ago. Denies any fever and chills, recent travel, cough and congestion. Ddx considered but are not limited to: vaginitis, yeast infection, BV, chlamydia , Gonorrhea, syphilis, HIV, herpes 1 or 2 Vital signs: are WNL, pt. is afebrile H&PE are most consistent with : Bacterial vaginosis ORDERS: Flagyl, Diflucan ED INTERVENTIONS: None required at this time. DISCHARGE: At this time pt. is stable for d/c to home. Will provide printed patient care instructions, and any necessary prescriptions. Care plan and follow up instructions have been discussed with the patient prior to discharge. Follow-up with pediatric associate, avoid drinking alcohol while taking Flagyl, if worsening symptoms return to the emergency room Last Vital Signs Date Time Temp Pulse Resp B/P (MAP) Pulse Ox O2 Delivery O2 Flow Rate FiO2 05/12/19 17:33 98.1 84 16 120/72 (88) 98 Room Air Disposition: HOME, SELF-CARE Condition: Stable Scripts Metronidazole* (FLAGYL*) 500 Mg Tablet 500 MG ORAL BID for 7 Days, #14 TAB Prov: Fredis Griffith 05/12/19 Fluconazole* (DIFLUCAN*) 200 Mg Tablet 200 MG ORAL DAILY, #2 TAB 0 Refills Prov: Fredis Griffith 05/12/19 Patient Instructions: Vaginitis, [id number] Fredis Griffith May 12, 2019 17:50
[2019-05-12 17:57] VITALS: BP 120/72
== END | disposition home or self-care (01) ==
LOC: EMR 18:05
DX: N76.0 Acute vaginitis (principal)
CPT/HCPCS: 99282

== ENCOUNTER 2019-12-31 17:14 | Emergency (ER) | payer OTHER ==
[~2019-12-31] VITALS: Ht 172.7 cm; Wt 124.7 kg
[2019-12-31 17:46] VITALS: BP 133/49
--- NOTE | 2019-12-31 17:47 | NUR ---
ED Nurse Note:pt. came with small abscess on right upper back
--- NOTE | 2019-12-31 18:30 | Emergency Room Report ---
History of Present Illness General Chief Complaint: Skin Rash/Abscess Source: Patient Present Illness HPI 49 YO female presents to the ED c/o 10/07 in severity progressive boil on the back of the left shoulder x 2 days. She denies fevers or chills. She reports having a home nurse who told her she needs to go to ER for I & D. Pt. reports initially started last week as a small pimple that she popped. Pt. reports 2 days ago progressed on its own. Pt. denies fevers, chills or swollen tender lymph nodes. Denies lesions/rashes elsewhere on the body. Denies new medications or body washes or creams. Denies swelling of the lips, tongue , throat or airway. Denies wheezing, or shortness of breath. Denies recent travel, recent illness or ill contacts. denies blisters, oral lesions, or sloughing of the skin Allergies: Coded Allergies: No Known Allergies (Unverified , 05/01/12) COVID-19 Screening Contact w/high risk pt: No Experienced COVID-19 symptoms?: No COVID-19 Testing performed COMPUTER GAME DESIGNER: No Patient History Past Medical History: see triage record Past Surgical History: none Pertinent Family History: none Now: No Reviewed Nursing Documentation: PMH: Agreed; PSxH: Agreed Nursing Documentation-PMH Past Medical History: No History, Except For Hx Hypertension: No Hx Asthma: Yes Hx Cancer: No Hx Gastrointestinal Problems: No Hx Neurological Problems: No Review of Systems All Other Systems: negative except mentioned in HPI Physical Exam Vital Signs Date Time Temp Pulse Resp B/P (MAP) Pulse Ox O2 Delivery O2 Flow Rate FiO2 12/31/19 17:19 97.2 83 19 133/49 (77) 100 Room Air Sp02 EP Interpretation: reviewed, normal General Appearance: no apparent distress, alert, GCS 15, non-toxic Head: normocephalic, atraumatic Eyes: bilateral eye normal inspection, bilateral eye PERRL ENT: hearing grossly normal, normal voice Neck: full range of motion Respiratory: lungs clear, normal breath sounds, no wheezing, speaking full sentences Cardiovascular #1: regular rate, rhythm Musculoskeletal: normal range of motion, gait/station normal, non-tender Neurologic: alert, motor strength/tone normal, oriented x3, sensory intact, responsive, speech normal Psychiatric: judgement/insight normal Skin: other - cellulitis and abscess 1cm on the right upper back. palpable induration and fluctuant head noted. surrounding erythema. Lymphatic: no adenopathy Procedures Incision and Drainage Incision and Drainage : Consent: Verbal Site: Right upper back Blade Size: 11 I & D Procedure: betadine prep, sterile drapes applied, sterile dressing applied Wound Location: back - right upper back Wound's Depth, Shape: linear Wound Length (cm): 1 Wound Explored: contaminated - purulent d/c and blood is expressed Irrigated w/ Saline (ccs): 30 Anesthesia: 1% Lidocaine Volume Anesthetic (ccs): 2 Splint Applied?: No Sling Applied?: No Patient Tolerated: Well Complications: None Medical Decision Making PA Attestation Dr. Shukla is my supervising Physician whom patient management has been discussed with. Diagnostic Impression: Primary Impression: Abscess ER Course 49 YO female presents to the ED c/o 10/07 in severity progressive boil on the back of the right shoulder x 2 days. She denies fevers or chills. She reports having a home nurse who told her she needs to go to ER for I & D. Pt. reports initially started last week as a small pimple that she popped. Pt. reports 2 days ago progressed on its own. Pt. denies fevers, chills or swollen tender lymph nodes. Denies lesions/rashes elsewhere on the body. Denies new medications or body washes or creams. Denies swelling of the lips, tongue , throat or airway. Denies wheezing, or shortness of breath. Denies recent travel, recent illness or ill contacts. denies blisters, oral lesions, or sloughing of the skin Ddx considered but are not limited to cellulitis, abscess, cystic acne, necrotizing fasciitis, insect bite. Vital signs: are WNL, pt. is afebrile H&PE are most consistent with cellulitis and abscess 1cm on the right upper back. palpable induration and fluctuant head noted. surrounding erythema. ORDERS: none required at this time, the diagnosis is clinical ED INTERVENTIONS: -I & D. - Sterile dressing applied by RN. DISCHARGE: At this time pt. is stable for d/c to home. Will provide printed patient care instructions, and any necessary prescriptions. Care plan and follow up instructions have been discussed with the patient prior to discharge. Last Vital Signs Date Time Temp Pulse Resp B/P (MAP) Pulse Ox O2 Delivery O2 Flow Rate FiO2 12/31/19 17:46 97.2 73 19 133/49 100 Room Air Disposition: HOME, SELF-CARE Condition: Stable Scripts Acetaminophen With Codeine (T#3) (TYLENOL #3 TAB*) Y Tab 1 TAB ORAL Q6H PRN for For Pain, #6 TAB Prov: Maribeth Cesar 12/31/19 Cephalexin* (KEFLEX*) 500 Mg Capsule 500 MG ORAL EVERY 12 HOURS for 7 Days, #14 CAP 0 Refills Prov: Maribeth Cesar 12/31/19 Trimethoprim/Sulfamethoxazole 160/800* (BACTRIM DS TABLET*) 1 Each Tablet 1 TAB ORAL TWICE A DAY for 7 Days, #14 TAB Prov: Maribeth Cesar 12/31/19 Patient Instructions: Abscess Additional Instructions: Take medications as directed. Do not drink alcohol, drive, or operate heavy machinery while taking Tylenol # 3 as this may cause drowsiness. Follow up with a Primary Care Provider in 3-5 days, even if your symptoms have resolved. --Please review list of primary care clinics, if you do not already have a primary care provider Return sooner to ED if new symptoms occur, or current symptoms become worse. - Please note that this Emergency Department Report was dictated using [employer] teacher technology software, occasionally this can lead to erroneous entry secondary to interpretation by the dictation equipment. Maribeth Cesar Dec 31, 2019 18:30
[2019-12-31] MEDS ORDERED: BACTRIM DS TAB1 EAC1 ORAL (18:31)
[2019-12-31] MEDS ORDERED: CEPHALEXIN500 MG ORAL (18:31)
[2019-12-31] MEDS ORDERED: ACETAMINOPHEN-1 EAC1 ORAL (18:34)
[2019-12-31 18:45] VITALS: BP 133/49
--- NOTE | 2019-12-31 18:45 | NUR ---
ED Nurse Note: Pt cleared by health care Provider for discharge. DC instructions/prescription was given and explained to pt and verbalized understanding of teachings. All medical deviecs such as ID band removed. Pt is AAO x4, ambulatory and left with all personal belongings.
== END 2019-12-31 18:45 | disposition home or self-care (01) ==
LOC: EMR 17:45
DX: L02.212 Cutaneous abscess of back [any part, except buttock and flank] (principal); L03.113 Cellulitis of right upper limb
CPT/HCPCS: 10060; Z7502; 99283